=== PATIENT | female | born 1960 | race Caucasian/White ===

== ENCOUNTER 2016-03-31 15:12 | Inpatient (IN) | payer OTHER ==
[2016-03-31 15:52] VITALS: BMI 23.8
--- NOTE | 2016-03-31 17:17 | HP ---
COWS - Scale Resting Pulse: 0= [place] 80 or Below Sweatin=Flushed/Facial Moisture Restless Observation: 3= Extraneous Movement Pupil Size: 2= Moderately Dilated Bone or Joint Aches: 2= Severe Diffuse Aches Runny Nose/ Eye Tearin= Runny Nose/Eyes GI Upset > 30mins: 3= Vomiting/Diarrhea Tremor Observation: 2= Slight Tremor Visible Yawning Observation: 2= >3x During Session Anxiety or Irritability: 2=Irritable/Anxious Goose Flesh Skin: 0=Smooth Skin COWS Score: 20 Admission ROS BHS - HPI Chief Complaint: I AM TIRED OF USING DRUGS Allergies/Adverse Reactions: Allergies Allergy/AdvReac Type Severity Reaction Status Date / Time carbamazepine [From Tegretol] Allergy Severe Difficulty Verified 08/31/15 11:05 Breathing lamotrigine [From Lamictal] Allergy Severe Rash Verified 08/31/15 11:47 phenytoin sodium Allergy Severe Difficulty Verified 08/31/15 11:05 [From Dilantin] Breathing phenytoin sodium extended Allergy Severe Difficulty Verified 08/31/15 11:05 [From Dilantin] Breathing History of Present Illness: THIS 56 YEARS OLD FEMALE WITH HEROIN DEPENDENCE AND COCAINE DEPENDENCE WITHDRAWAL SYMPTOM,LAST DETOX 08/31/15 TO 09/03/15 [facility] NOT COMPLETED SEIZURE LAST 1 WEEK AGO NICOTINE DEPENDENCE WEIGHT LOSS ANXIETY AND DEPRESSION LONGEST PERIOD OF SOBRIETY 19 YEARS SEVERAL ADMISSIONS TO DETOX Exam Limitations: No Limitations - Ebola screening Have you traveled outside of the country in the last 21 days: No Have you had contact with anyone from an Ebola affected area: No Have you been sick,other than usual withdrawal symptoms: No Do you have a fever: No - Review of Systems Constitutional: Diaphoresis, Loss of Appetite, Malaise, Night Sweats, Changes in sleep, Weakness, Unintentional Wgt. Loss EENT: reports: Tearing, Nose Congestion Respiratory: reports: Other (ASTMA) Cardiac: reports: Palpitations GI: reports: Nausea, Poor Appetite, Vomiting, Abdominal cramping : reports: No Symptoms Reported Musculoskeletal: reports: Back Pain, Joint Pain, Muscle Pain, Joint Stiffness Integumentary: reports: Dryness Neuro: reports: Headache, Tremors Endocrine: reports: No Symptoms Reported Hematology: reports: No Symptoms Reported Psychiatric: reports: Anxious, Depressed Other Systems: Reviewed and Negative Patient History - Patient Medical History Hx Anemia: No Hx Asthma: Yes (MDI) Hx Chronic Obstructive Pulmonary Disease (COPD): No Hx Cancer: Yes (LEFT BREAST/ breast removal 05/2011) Hx Cardiac Disorders: No Hx Congestive Heart Failure: No Hx Hypertension: No Hx Hypercholesterolemia: No Hx Pacemaker: No HX Cerebrovascular Accident: No Hx Seizures: Yes (2 YRS AGO) Hx Dementia: No Hx Diabetes: No Hx Gastrointestinal Disorders: No Hx Liver Disease: No Hx Genitourinary Disorders: No Hx Sexually Transmitted Disorders: No Hx Renal Disease (ESRD): No Hx Thyroid Disease: No Hx Human Immunodeficiency Virus (HIV): No (NEGATIVE HX LAST 09/08) Hx Hepatitis C: No Hx Depression: No Hx Suicide Attempt: Yes (CUT WRIST AT 6 YRS AGO; DENIES RECENT IDEATION) Hx Bipolar Disorder: Yes (anxiety ) Hx Schizophrenia: No Other Medical History: NO SUICIDAL,NO HOMICIDAL - Patient Surgical History Past Surgical History: Yes Hx Neurologic Surgery: No Hx Cataract Extraction: No Hx Cardiac Surgery: No Hx Lung Surgery: No Hx Breast Surgery: Yes (MODIFIED LEFT RADICAL MASTECTOMY IN 07/05 [facility]) Hx Breast Biopsy: No Hx Abdominal Surgery: No Hx Appendectomy: No Hx Cholecystectomy: No Hx Genitourinary Surgery: No Hx Section: Yes (x2) Other Surgical History: ectopic at age 24 LEFT Anesthesia Reaction: No - PPD History Previous Implant?: Yes Documented Results: Negative w/proof Implanted On Prior [facility] Admission?: Yes Date: 09/02/15 Results: 0 MM PPD to be Administered?: No - Reproductive History Patient is a Female of Child Bearing Age (11 -55 yrs old): Yes Patient : No - Smoking Cessation Smoking history: Current some day smoker Have you smoked in the past 12 months: Yes Aproximately how many cigarettes per day: 10 Cigars Per Day: 0 Hx Chewing Tobacco Use: No Initiated information on smoking cessation: Yes 'Breaking Loose' booklet given: 03/31/16 - Substance & Tx. History Hx Alcohol Use: Yes Hx Substance Use: Yes Substance Use Type: Alcohol, Cocaine Hx Substance Use Treatment: Yes ([facility] 08/31/15 TO 09/03/15) - Substances Abused Heroin Route: Injection Frequency: Daily Amount used: 10 BAGS Age of first use: 24 Date of Last Use: 03/31/16 Cocaine Route: Smoking Frequency: Daily Amount used: 50$ Age of first use: 56 Date of Last Use: 03/29/16 Family Disease History - Family Disease History Family Disease History: CA: Grandparent (cervical CA), Mother (cervical CA) Admission Physical Exam [facility] - Vital Signs Vital Signs: Vital Signs - 24 hr 03/31/16 15:50 Temperature 96.6 F L Pulse Rate 76 Respiratory 18 Rate Blood Pressure 96/69 - Physical General Appearance: Yes: Moderate Distress, Tremorous, Irritable, Sweating, Anxious HEENTM: Yes: Nasal Congestion Respiratory: Yes: Lungs Clear Neck: Yes: Within Normal Limits Breast: Yes: Surgical Scar (S/P MASTECTOMY LEFT) Cardiology: Yes: Regular Rhythm, Regular Rate, S1, S2 Abdominal: Yes: Within Normal Limits, Normal Bowel Sounds, Non Tender, Flat, Soft Genitourinary: Yes: Within Normal Limits Back: Yes: Muscle Spasm Musculoskeletal: Yes: Back pain, Muscle Pain Extremities: Yes: Tremors Neurological: Yes: Within Normal Limits, bench chemist II-XII NML intact, Fully Oriented, Alert, Motor Strength 5/5 Integumentary: Yes: Dry Lymphatic: Yes: Within Normal Limits - Diagnostic (1) OCD (obsessive compulsive disorder) Current Visit: No Status: Acute (2) Opioid dependence with withdrawal Current Visit: No Status: Acute (3) Asthma Current Visit: No Status: Chronic Qualifiers: Asthma severity: mild intermittent Asthma complication type: uncomplicated Qualified Code(s): J45.20 - Mild intermittent asthma, uncomplicated (4) Nicotine dependence Current Visit: No Status: Chronic Qualifiers: Nicotine product type: cigarettes Substance use status: uncomplicated Qualified Code(s): F17.210 - Nicotine dependence, cigarettes, uncomplicated (5) Seizures Current Visit: No Status: Chronic Qualifiers: Convulsion type: unspecified Qualified Code(s): R56.9 - Unspecified convulsions (6) Weight loss Current Visit: Yes Status: Acute (7) History of mastectomy Current Visit: Yes Status: Acute Qualifiers: Laterality: left Qualified Code(s): Z90.12 - Acquired absence of left breast and nipple (8) Bipolar disorder Current Visit: No Status: Acute Cleared for Admission [facility] - Detox or Rehab S Level of Care: Medically Managed Detox Regimen/Protocol: Methadone S Breath Alcohol Content Breath Alcohol Content: 0 Urine Drug Screen - Results Drug Screen Negative: No Urine Drug Screen Results: PAWAN-Cocaine, OPI-Opiates, OXY-Oxycodone
[2016-03-31] MEDS ORDERED: MAG HYDROX/AL HYDROX/SIMETH 30 ML UNIT-DOSE CUP PO PRN (17:33)
[2016-03-31] MEDS ORDERED: MENTHOL/PHENOL 1 EACH UD MM PRN (17:33)
[2016-03-31] MEDS ORDERED: IBUPROFEN 400 MG TABLET (FP) PO PRN (17:33)
[2016-03-31] MEDS ORDERED: diphenhydrAMINE HCL 50 MG CAPSULE PO PRN (17:33)
[2016-03-31] MEDS ORDERED: LOPERAMIDE HCL 2 MG CAPSULE PO PRN (17:33)
[2016-03-31] MEDS ORDERED: METHADONE HCL 10 MG TABLET (FOR DETOX USE ONLY) PO ONE ×2 (17:33→23:00)
[2016-03-31] MEDS ORDERED: ACETAMINOPHEN 325 MG TABLET (FP) PO PRN (17:33)
[2016-03-31] MEDS ORDERED: NICOTINE POLACRILEX 2 MG GUM BC PRN (17:33)
[2016-03-31] MEDS ORDERED: P-EPHED 60MG/TRIPROLIDI 2.5MG TABLET PO PRN (17:33)
[2016-03-31] MEDS ORDERED: guaiFENesin/D-METHORPHAN HB 10 ML UNIT-DOSE CUPS PO PRN (17:33)
[2016-03-31] MEDS ORDERED: MAGNESIUM HYDROX 2400MG/30ML ORAL SUSPENSION 30 ML CUP PO PRN (17:33)
[2016-03-31] MEDS ORDERED: MAGNESIUM CITRATE 300 ML BOTTLE PO PRN (17:33)
[2016-03-31] MEDS ORDERED: ALBUTEROL SO4 6.7 GM HFA INHALER IH PRN (17:39)
[2016-03-31] MEDS: diazePAM 5 MG TABLET PO PRN (19:35)
[2016-03-31] MEDS: BUDESONIDE/FORMETEROL FUMARATE 80/4.5 mcg INHALER IH SCH (23:03)
[2016-03-31] MEDS: LACOSAMIDE 50 MG TABLET PO SCH (23:04)
[2016-03-31] MEDS: THIAMINE HCL 100 MG TABLET (FP) PO SCH (23:05)
[2016-03-31] MEDS: GABAPENTIN 300 MG CAPSULE (FP) PO SCH (23:14)
[2016-04-01] MEDS ORDERED: TRIMETHOBENZAMIDE HCL 200MG/2ML INJ IM PRN (01:01)
[2016-04-01] MEDS: GABAPENTIN 300 MG CAPSULE (FP) PO SCH ×3 (05:58→22:38)
[2016-04-01] MEDS: diazePAM 5 MG TABLET PO PRN ×3 (05:59→22:41)
[2016-04-01] MEDS ORDERED: METHADONE HCL 10 MG TABLET (FOR DETOX USE ONLY) PO ONE (10:00)
[2016-04-01 10:01] LABS: MCH 23.2 pg (25.7-33.7); MCHC 31.7 g/dl (32.0-36.0); MEAN CELL VOLUME 73.1 fl (80-96); MEAN PLT VOLUME 8.6 fl (7.5-11.1); PLATELET COUNT 246 K/MM3 (134-434); RDW 16.9 % (11.6-15.6); WHITE BLOOD COUNT 5.8 K/mm3 (4.0-10.0)
[2016-04-01 10:30] LABS: ALK PHOS 133 U/L (45-117); ANION GAP 10 (8-16); BILIRUBIN,TOTAL 0.4 mg/dL (0.2-1.0); CO2 31 mmol/L (21-32); CREATININE 0.8 mg/dL (0.55-1.02); GLUCOSE,RANDOM 106 mg/dL (74-106); SGOT/AST 164 U/L (15-37); SGPT/ALT 217 U/L (12-78)
[2016-04-01] MEDS: LACOSAMIDE 50 MG TABLET PO SCH ×2 (10:34→22:38)
[2016-04-01] MEDS: PRENATAL VITAMINS W/ FOLIC ACID TABLET (FP) PO SCH (10:34)
--- NOTE | 2016-04-01 11:06 | PN ---
S COWS - Scale Resting Pulse: 0= [place] 80 or Below Sweatin=Flushed/Facial Moisture Restless Observation: 1= Difficult to Sit Still Pupil Size: 0= Normal to Room Light Bone or Joint Aches: 2= Severe Diffuse Aches Runny Nose/ Eye Tearin= Nasal Congestion GI Upset > 30mins: 2= Nausea/Diarrhea Tremor Observation of Outstretched Hands: 2= Slight Tremor Visible Yawning Observation: 2= >3x During Session Anxiety or Irritability: 2=Irritable/Anxious Goose Flesh Skin: 3=Piloerection COWS Score: 17 BHS Progress Note (SOAP) Subjective: irritable nausea sweats/shakes interrupted sleep body aches agitation Objective: 04/01/16 11:05 Vital Signs Temperature 98.2 F 04/01/16 10:21 Pulse Rate 76 04/01/16 10:21 Respiratory Rate 16 04/01/16 10:21 Blood Pressure 92/50 04/01/16 10:21 O2 Sat by Pulse Oximetry (%) Laboratory Tests 04/01/16 04/01/16 07:00 07:00 WBC 5.8 RBC 5.24 H Hgb 12.1 Hct 38.3 MCV 73.1 L MCHC 31.7 L RDW 16.9 H Plt Count 246 MPV 8.6 Sodium 137 Potassium 3.9 Chloride 96 L Carbon Dioxide 31 Anion Gap 10 BUN 6 L Creatinine 0.8 Creat Clearance w eGFR > 60 Random Glucose 106 Calcium 9.0 Total Bilirubin 0.4 AST 164 H D ALT 217 H D Alkaline Phosphatase 133 H Total Protein 6.0 L D Albumin 3.0 L elevated ast/alt; d/c tylenol repeat labs awake/alert ambulating no acute distress Assessment: 04/01/16 11:05 withdrawal sx Plan: continue detox increase fluids f/u pending labs yusra booker prn
[2016-04-01] MEDS: BUDESONIDE/FORMETEROL FUMARATE 80/4.5 mcg INHALER IH SCH ×2 (11:21→22:38)
--- NOTE | 2016-04-01 11:54 | CONSULT ---
[facility] Psychiatric Consult - Data Date of interview: 04/01/16 Admission source: [facility] Identifying data: This is 56 years old female with psychiatric hospitalization history, history of Bipol.ar Disorder, intoxicated with: Opioids, Cocaine, Xanax, Nicotine, history of Alcohol abuse/dependency Substance Abuse History: - Smoking Cessation. Smoking history: Current some day smoker. Have you smoked in the past 12 months: Yes. Aproximately how many cigarettes per day: 10. Cigars Per Day: 0. Hx Chewing Tobacco Use: No. Initiated information on smoking cessation: Yes. 'Breaking Loose' booklet given : 03/31/16. - Substance & Tx. History. Hx Alcohol Use: Yes. Hx Substance Use : Yes. Substance Use Type: Alcohol, Cocaine. Hx Substance Use Treatment: Yes ( [facility] 08/31/15 TO 09/03/15). - Substances Abused. Heroin. Route: Injection. Frequency: Daily. Amount used: 10 BAGS. Age of first use: 24. Date of Last Use: 03/31/16. Cocaine. Route: Smoking. Frequency: Daily. Amount used: 50$. Age of first use: 56. Date of Last Use: 03/29/16 Medical History: Weight loss history, History od Mastectomy, Asthma, Seizure history Psychiatric History: Patient having history of Bipolar disorder, reports most recent psychaitric admission on about 7 years ago at [facility] for safety , reports to carry bBipolsr disorder, reports taking prior to admssionh: Gabapentin 300mg po tid. Zoloft 50mg pop qhs. Abilify 5mg po qhs Physical/Sexual Abuse/Trauma History: Unclear Additional Comment: Gabapentin 300mg po tid. Zoloft 50mg pop qhs. Abilify 5mg po qhs Mental Status Exam - Mental Status Exam Alert and Oriented to: Person Cognitive Function: Fair Patient Appearance: Unkempt Mood: Nervous, Anxious Affect: Constricted Patient Behavior: Aggressive, Restless, Guarded, Suspicious Speech Pattern: Appropriate Voice Loudness: Mildly Loud Thought Process: Goal Oriented Thought Disorder: Being Controlled Hallucinations: Denies Suicidal Ideation: Denies Homicidal Ideation: Denies Insight/Judgement: Fair Sleep: Difficulty falling asleep Appetite: Weight loss Muscle strength/Tone: Mild Hypertonicity Gait/Station: Normal Additional Comments: Gabapentin 300mg po tid. Zoloft 50mg pop qhs. Abilify 5mg po qhs Psychiatric Findings - Problem List ([place] 1, 2,3) (1) Weight loss Current Visit: Yes Status: Acute (2) Bipolar disorder Current Visit: No Status: Acute (3) OCD (obsessive compulsive disorder) Current Visit: No Status: Acute (4) Opioid dependence with withdrawal Current Visit: No Status: Acute (5) Nicotine dependence Current Visit: No Status: Chronic Qualifiers: Nicotine product type: cigarettes Substance use status: uncomplicated Qualified Code(s): F17.210 - Nicotine dependence, cigarettes, uncomplicated - Initial Treatment Plan Initial Treatment Plan: Gabapentin 300mg po tid. Zoloft 50mg pop qhs. Abilify 5mg po qhs
--- NOTE | 2016-04-01 13:58 | EKG ---
Test Reason : Blood Pressure : / mmHG Vent. Rate : 062 BPM Atrial Rate : 062 BPM P-R Int : 130 ms QRS Dur : 092 ms QT Int : 414 ms P-R-T Axes : 061 064 037 degrees QTc Int : 420 ms NORMAL SINUS RHYTHM POSSIBLE LEFT ATRIAL ENLARGEMENT BORDERLINE ECG NO PREVIOUS ECGS AVAILABLE Confirmed by NESTOR VALLES, RANDY ([id number]) on 04/01/2016 1:58:01 PM Referred By: Confirmed By:RANDY BAEZ MD
[2016-04-01 14:21] LABS: URINE APPEARANCE SLCLOUDY; URINE BILIRUBIN NEGATIVE (NEGATIVE); URINE BLOOD NEGATIVE (NEGATIVE); URINE COLOR YELLOW; URINE GLUCOSE (UA) NEGATIVE (NEGATIVE); URINE KETONE NEGATIVE (NEGATIVE); URINE NITRITE NEGATIVE (NEGATIVE); URINE PROTEIN NEGATIVE (NEGATIVE); URINE UROBILINOGEN NEGATIVE E.U./dl (0.2-1.0)
[2016-04-01 14:22] LABS: URINE LEUK ESTERASE 3+ (NEGATIVE)
[2016-04-01 14:38] LABS: URINE MUCUS MODERATE; URINE RBC 8 /hpf (0-3); URINE WBC 17 /hpf (3-5)
[2016-04-01] MEDS: ONDANSETRON *ODT* 4 MG TABLET SL PRN (15:03)
[2016-04-01] MEDS: SERTRALINE HCL 50 MG TABLET (FP) PO SCH (22:38)
[2016-04-01] MEDS: THIAMINE HCL 100 MG TABLET (FP) PO SCH (22:38)
[2016-04-01] MEDS: ARIPiprazole 5 MG TABLET (FP) PO SCH (22:38)
[2016-04-02] MEDS: GABAPENTIN 300 MG CAPSULE (FP) PO SCH ×3 (06:03→22:42)
[2016-04-02] MEDS: diazePAM 5 MG TABLET PO PRN ×3 (06:04→22:45)
[2016-04-02] MEDS ORDERED: METHADONE HCL 5 MG TABLET (FOR DETOX USE ONLY) PO ONE (10:00)
[2016-04-02 10:20] LABS: BASOPHIL 0.6 % (0-2.0); EOSINOPHIL 4.7 % (0-4.5); MCH 23.5 pg (25.7-33.7); MCHC 32.4 g/dl (32.0-36.0); MEAN CELL VOLUME 72.5 fl (80-96); MEAN PLT VOLUME 8.6 fl (7.5-11.1); NEUTROPHILS 52.3 % (42.8-82.8); PLATELET COUNT 227 K/MM3 (134-434); RDW 16.8 % (11.6-15.6); WHITE BLOOD COUNT 5.7 K/mm3 (4.0-10.0)
[2016-04-02 10:31] LABS: ALBUMIN 2.8 g/dl (3.4-5.0); ALK PHOS 136 U/L (45-117); ANION GAP 8 (8-16); BILIRUBIN,TOTAL 0.4 mg/dL (0.2-1.0); CALCIUM 8.3 mg/dL (8.5-10.1); CO2 29 mmol/L (21-32); CREATININE 0.6 mg/dL (0.55-1.02); GLUCOSE,RANDOM 86 mg/dL (74-106); SGOT/AST 228 U/L (15-37); SGPT/ALT 241 U/L (12-78); TOT PROT 5.8 g/dl (6.4-8.2)
[2016-04-02] MEDS: BUDESONIDE/FORMETEROL FUMARATE 80/4.5 mcg INHALER IH SCH ×2 (10:40→22:42)
[2016-04-02] MEDS: PRENATAL VITAMINS W/ FOLIC ACID TABLET (FP) PO SCH (10:41)
[2016-04-02] MEDS: LACOSAMIDE 50 MG TABLET PO SCH ×2 (10:41→22:42)
[2016-04-02] MEDS: ONDANSETRON *ODT* 4 MG TABLET SL PRN (10:44)
--- NOTE | 2016-04-02 11:03 | PN ---
BHS COWS - Scale Resting Pulse: 1= [place] 81-100 Sweatin=Flushed/Facial Moisture Restless Observation: 1= Difficult to Sit Still Pupil Size: 0= Normal to Room Light Bone or Joint Aches: 2= Severe Diffuse Aches Runny Nose/ Eye Tearin= Nasal Congestion GI Upset > 30mins: 1= Stomach Cramp Tremor Observation of Outstretched Hands: 1= Tremor [place], Not Seen Yawning Observation: 2= >3x During Session Anxiety or Irritability: 2=Irritable/Anxious Goose Flesh Skin: 0=Smooth Skin COWS Score: 13 BHS Progress Note (SOAP) Subjective: body aches sweats shakes interrupted sleep mild nausea Objective: 04/02/16 11:01 Vital Signs Temperature 97.1 F L 04/02/16 10:39 Pulse Rate 81 04/02/16 10:39 Respiratory Rate 20 04/02/16 10:39 Blood Pressure 95/55 04/02/16 10:39 O2 Sat by Pulse Oximetry (%) Laboratory Tests 04/01/16 04/01/16 04/01/16 07:00 07:00 07:00 WBC 5.8 RBC 5.24 H Hgb 12.1 Hct 38.3 MCV 73.1 L MCHC 31.7 L RDW 16.9 H Plt Count 246 MPV 8.6 Neutrophils % Lymphocytes % Monocytes % Eosinophils % Basophils % Sodium 137 Potassium 3.9 Chloride 96 L Carbon Dioxide 31 Anion Gap 10 BUN 6 L Creatinine 0.8 Creat Clearance w eGFR > 60 Random Glucose 106 Calcium 9.0 Total Bilirubin 0.4 AST 164 H D ALT 217 H D Alkaline Phosphatase 133 H Total Protein 6.0 L D Albumin 3.0 L Urine Color Urine Appearance Urine pH Ur Specific [place] Urine Protein Urine Glucose (UA) Urine Ketones Urine Blood Urine Nitrite Urine Bilirubin Urine Urobilinogen Ur Leukocyte Esterase Urine RBC Urine WBC Ur Epithelial Cells Urine Mucus RPR Titer Nonreactive 04/01/16 04/02/16 04/02/16 11:20 07:00 07:00 WBC 5.7 RBC 5.27 H Hgb 12.4 Hct 38.2 MCV 72.5 L MCHC 32.4 RDW 16.8 H Plt Count 227 MPV 8.6 Neutrophils % 52.3 Lymphocytes % 34.0 Monocytes % 8.4 Eosinophils % 4.7 H Basophils % 0.6 Sodium 141 Potassium 4.3 Chloride 104 Carbon Dioxide 29 Anion Gap 8 BUN 5 L Creatinine 0.6 D Creat Clearance w eGFR > 60 Random Glucose 86 Calcium 8.3 L Total Bilirubin 0.4 AST 228 H D ALT 241 H Alkaline Phosphatase 136 H Total Protein 5.8 L Albumin 2.8 L Urine Color Yellow Urine Appearance Slcloudy Urine pH 6.0 Ur Specific [place] 1.010 Urine Protein Negative Urine Glucose (UA) Negative Urine Ketones Negative Urine Blood Negative Urine Nitrite Negative Urine Bilirubin Negative Urine Urobilinogen Negative Ur Leukocyte Esterase 3+ H Urine RBC 8 Urine WBC 17 Ur Epithelial Cells Few Urine Mucus Moderate RPR Titer awake/alert ambulating no acute distress elevated ast/alt; encourage oral hydration repeat labs Assessment: 04/02/16 11:02 withdrawal sx Plan: continue detox increase fluids repeat labs ast/alt
[2016-04-02] MEDS: SERTRALINE HCL 50 MG TABLET (FP) PO SCH (22:42)
[2016-04-02] MEDS: THIAMINE HCL 100 MG TABLET (FP) PO SCH (22:42)
[2016-04-02] MEDS: ARIPiprazole 5 MG TABLET (FP) PO SCH (22:42)
[2016-04-03] MEDS: GABAPENTIN 300 MG CAPSULE (FP) PO SCH ×3 (06:12→22:59)
[2016-04-03] MEDS: diazePAM 5 MG TABLET PO PRN ×2 (06:15→10:28)
[2016-04-03] MEDS ORDERED: METHADONE HCL 5 MG TABLET (FOR DETOX USE ONLY) PO ONE (10:00)
[2016-04-03] MEDS: LACOSAMIDE 50 MG TABLET PO SCH ×2 (10:14→22:59)
[2016-04-03] MEDS: PRENATAL VITAMINS W/ FOLIC ACID TABLET (FP) PO SCH (10:14)
[2016-04-03] MEDS: BUDESONIDE/FORMETEROL FUMARATE 80/4.5 mcg INHALER IH SCH ×2 (10:15→22:58)
[2016-04-03] MEDS: cloNIDine HCL 0.1 MG TABLET PO SCH ×2 (10:15→23:00)
[2016-04-03 10:38] LABS: SGOT/AST 231 U/L (15-37); SGPT/ALT 290 U/L (12-78)
[2016-04-03] MEDS: hydrOXYzine PAMOATE 25 MG CAPSULE (FP) PO PRN (12:55)
[2016-04-03] MEDS: ONDANSETRON *ODT* 4 MG TABLET SL PRN (12:56)
[2016-04-03] MEDS: CYCLOBENZAPRINE HCL 10 MG TABLET (FP) PO PRN ×2 (12:56→23:01)
--- NOTE | 2016-04-03 13:30 | PN ---
S Progress Note (SOAP) Subjective: ALERT,IRRITABLE,ANXIOUS,INTERRUPTED SLEEP,TREMOR,PAIN IN THE BODY AND BACK Objective: 04/03/16 13:29 Vital Signs Temperature 98.6 F 04/03/16 10:19 Pulse Rate 84 04/03/16 10:19 Respiratory Rate 18 04/03/16 10:19 Blood Pressure 103/62 04/03/16 10:19 O2 Sat by Pulse Oximetry (%) Assessment: 04/03/16 13:30 WITHDRAWAL SYMPTOM Plan: CONTINUE DETOX
[2016-04-03] MEDS: NICOTINE 21 MG/24 HOURS TOPICAL PATCH TD SCH (15:56)
[2016-04-03] MEDS: ARIPiprazole 5 MG TABLET (FP) PO SCH (22:59)
[2016-04-03] MEDS: THIAMINE HCL 100 MG TABLET (FP) PO SCH (22:59)
[2016-04-03] MEDS: SERTRALINE HCL 50 MG TABLET (FP) PO SCH (22:59)
[2016-04-04] MEDS: GABAPENTIN 300 MG CAPSULE (FP) PO SCH ×3 (06:26→22:26)
[2016-04-04] MEDS: hydrOXYzine PAMOATE 25 MG CAPSULE (FP) PO PRN (06:27)
[2016-04-04] MEDS ORDERED: METHADONE HCL 10 MG TABLET (FOR DETOX USE ONLY) PO ONE (10:00)
[2016-04-04] MEDS ORDERED: NICOTINE 21 MG/24 HOURS TOPICAL PATCH TD SCH (10:00)
[2016-04-04] MEDS: cloNIDine HCL 0.1 MG TABLET PO SCH (10:57)
[2016-04-04] MEDS: BUDESONIDE/FORMETEROL FUMARATE 80/4.5 mcg INHALER IH SCH ×2 (10:58→22:26)
[2016-04-04] MEDS: PRENATAL VITAMINS W/ FOLIC ACID TABLET (FP) PO SCH (10:58)
[2016-04-04] MEDS: LACOSAMIDE 50 MG TABLET PO SCH ×2 (10:59→22:27)
[2016-04-04] MEDS: NICOTINE 21 MG/24 HOURS TOPICAL PATCH TD SCH (10:59)
--- NOTE | 2016-04-04 14:05 | PN ---
BHS Progress Note (SOAP) Subjective: constipation irritable Objective: 04/04/16 14:04 Vital Signs Temperature 99.0 F 04/04/16 10:26 Pulse Rate 88 04/04/16 10:26 Respiratory Rate 16 04/04/16 10:26 Blood Pressure 89/55 04/04/16 10:26 O2 Sat by Pulse Oximetry (%) awake/alert ambulating no acute distress Assessment: 04/04/16 14:04 withdrawal sx Plan: continue detox increase fluids immodium prn d/c in am
[2016-04-04] MEDS: THIAMINE HCL 100 MG TABLET (FP) PO SCH (22:26)
[2016-04-04] MEDS: ARIPiprazole 5 MG TABLET (FP) PO SCH (22:27)
[2016-04-04] MEDS: SERTRALINE HCL 50 MG TABLET (FP) PO SCH (22:27)
[2016-04-05] MEDS: GABAPENTIN 300 MG CAPSULE (FP) PO SCH (05:50)
[2016-04-05] MEDS ORDERED: METHADONE HCL 5 MG TABLET (FOR DETOX USE ONLY) PO ONE (06:00)
[2016-04-05 06:42] VITALS: BP 98/61; PULSE 78; TEMP 98.5
[2016-04-05] MEDS: LACOSAMIDE 50 MG TABLET PO SCH (09:19)
--- NOTE | 2016-04-05 09:20 | DS ---
[facility] Detox Discharge Summary Admission Date: 03/31/16 Discharge Date: 04/05/16 - History Present History: Opioid Dependence - Physical Exam Results Vital Signs: Vital Signs Temperature 98.5 F 04/05/16 06:41 Pulse Rate 78 04/05/16 06:41 Respiratory Rate 16 04/05/16 06:41 Blood Pressure 98/61 04/05/16 06:41 O2 Sat by Pulse Oximetry (%) - Treatment Hospital Course: Detox Protocol Followed, Detoxed Safely, Responded well, Discharged Condition Good, Rehab Referral Accepted - Medication Discharge Medications: Ambulatory Orders Albuterol Sulfate Inhaler - [Ventolin Hfa Inhaler -] 2 inh PO Q4H 03/31/16 Budesonide/Formeterol Fumarate [SYMBICORT 80/4.5mcg -] 2 puff PO BID 03/31/16 Gabapentin [Neurontin -] 300 mg PO Q8H 03/31/16 Lacosamide [Vimpat -] 100 mg PO DAILY 03/31/16 Montelukast Na [Singulair -] 10 mg PO HS 03/31/16 Aripiprazole [Abilify -] 5 mg PO HS #30 tablet 04/01/16 Sertraline HCl [Zoloft -] 50 mg PO HS #30 tablet 04/01/16 - Diagnosis (1) History of mastectomy Current Visit: Yes Status: Acute Qualifiers: Laterality: left Qualified Code(s): Z90.12 - Acquired absence of left breast and nipple (2) Weight loss Current Visit: Yes Status: Acute (3) Bipolar disorder Current Visit: No Status: Chronic (4) OCD (obsessive compulsive disorder) Current Visit: No Status: Acute (5) Opioid dependence with withdrawal Current Visit: Yes Status: Chronic (6) Asthma Current Visit: Yes Status: Chronic Qualifiers: Asthma severity: mild intermittent Asthma complication type: uncomplicated Qualified Code(s): J45.20 - Mild intermittent asthma, uncomplicated (7) Nicotine dependence Current Visit: Yes Status: Chronic Qualifiers: Nicotine product type: cigarettes Substance use status: uncomplicated Qualified Code(s): F17.210 - Nicotine dependence, cigarettes, uncomplicated (8) Seizures Current Visit: No Status: Chronic Qualifiers: Convulsion type: unspecified Qualified Code(s): R56.9 - Unspecified convulsions - AMA Did Patient Leave Against Medical Advice: No
[2016-04-05] MEDS: BUDESONIDE/FORMETEROL FUMARATE 80/4.5 mcg INHALER IH SCH (09:22)
== END 2016-04-05 09:26 | disposition home or self-care (01) | DRG 773 ==
LOC: YASAS 15:12 → Y6N 17:19
PROVIDERS: ADMIT Internal Medicine Addiction Medicine; ATTEND Internal Medicine Addiction Medicine
PROC: HZ2ZZZZ Detoxification Services for Substance Abuse Treatment (ICD-10-PCS; principal; 2016-04-05)
DX: F11.23 Opioid dependence with withdrawal (principal); F17.210 Nicotine dependence, cigarettes, uncomplicated; F31.9 Bipolar disorder, unspecified; F42.9 Obsessive-compulsive disorder, unspecified; R56.9 Unspecified convulsions; J45.20 Mild intermittent asthma, uncomplicated; R63.4 Abnormal weight loss; Z68.23 Body mass index [BMI] 23.0-23.9, adult; Z85.3 Personal history of malignant neoplasm of breast; Z90.12 Acquired absence of left breast and nipple
CPT/HCPCS: 36415; 80053; 81003; 81015; 84450; 84460; 85025; 85027; 85610; 86593; 93005; 93010

== ENCOUNTER 2018-01-02 22:13 | Inpatient (IN) | payer OTHER ==
[2018-01-02 23:40] VITALS: BMI 22.6
--- NOTE | 2018-01-03 00:23 | HP ---
COWS - Scale Resting Pulse: 0= [place] 80 or Below Sweatin=Flushed/Facial Moisture Restless Observation: 0= Sits Still Pupil Size: 0= Normal to Room Light Bone or Joint Aches: 2= Severe Diffuse Aches Runny Nose/ Eye Tearin= Runny Nose/Eyes GI Upset > 30mins: 2= Nausea/Diarrhea (diarrhea x 2) Tremor Observation: 2= Slight Tremor Visible Yawning Observation: 1= 1-2x During Session Anxiety or Irritability: 2=Irritable/Anxious Goose Flesh Skin: 3=Piloerection COWS Score: 16 CIWA Score - Admission Criteria [facility]ASAS Guidelines: Admission for Medically Managed Detox: Requires at least one of the followin. CIWA greater than 12 2. Seizures within the past 24 hours 3. Delirium tremens within the past 24 hours 4. Hallucinations within the past 24 hours 5. Acute intervention needed for co occurring medical disorder 6. Acute intervention needed for co occurring psychiatric disorder 7. Severe withdrawal that cannot be handled at a lower level of care (continued vomiting, continued diarrhea, abnormal vital signs) requiring intravenous medication and/or fluids 8. Admission ROS [facility] Chief Complaint: Heroin withdrawal symptoms Allergies/Adverse Reactions: Allergies Allergy/AdvReac Type Severity Reaction Status Date / Time carbamazepine [From Tegretol] Allergy Severe Difficulty Verified 01/02/18 23:57 Breathing lamotrigine [From Lamictal] Allergy Severe Rash Verified 01/02/18 23:57 phenytoin sodium Allergy Severe Difficulty Verified 01/02/18 23:57 [From Dilantin] Breathing phenytoin sodium extended Allergy Severe Difficulty Verified 01/02/18 23:57 [From Dilantin] Breathing History of Present Illness: 57 years old female with 33 years of heroin dependence is seeking admission to detox. Patient reports that last detox was in 03/31/2016- 04/05/2016 at [facility]. She reports a year of sobriety. She has medical history of seizure, asthma, Hep. c, left breast cancer, anxiety and depression. She denies suicide attempt or ideation at this time. Patient's blood pressure is B/P 85/45. Patient reports that her blood pressure is always low. Exam Limitations: No Limitations - Ebola screening Have you traveled outside of the country in the last 21 days: No (N) Have you had contact with anyone from an Ebola affected area: No Have you been sick,other than usual withdrawal symptoms: No Do you have a fever: No - Review of Systems Constitutional: Chills, Malaise EENT: reports: No Symptoms Reported Respiratory: reports: No Symptoms reported Cardiac: reports: No Symptoms Reported GI: reports: Diarrhea (x 2), Nausea, Poor Appetite, Poor Fluid Intake, Abdominal cramping : reports: No Symptoms Reported Musculoskeletal: reports: Back Pain, Muscle Pain Neuro: reports: Headache, Tremors Endocrine: reports: No Symptoms Reported Hematology: reports: No Symptoms Reported Psychiatric: reports: Agitated, Anxious, Depressed Other Systems: Reviewed and Negative Patient History - Patient Medical History Hx Anemia: No Hx Asthma: Yes (Alb uterol) Hx Chronic Obstructive Pulmonary Disease (COPD): No Hx Cancer: Yes (LEFT BREAST/ breast removal 05/2011) Hx Cardiac Disorders: No Hx Congestive Heart Failure: No Hx Hypertension: No Hx Hypercholesterolemia: No Hx Pacemaker: No HX Cerebrovascular Accident: No Hx Seizures: Yes (Not on medication) Hx Dementia: No Hx Diabetes: No Hx Gastrointestinal Disorders: No Hx Liver Disease: No Hx Genitourinary Disorders: No Hx Sexually Transmitted Disorders: No Hx Renal Disease (ESRD): No Hx Thyroid Disease: No Hx Human Immunodeficiency Virus (HIV): No (NEGATIVE HX LAST 09/08) Hx Hepatitis C: Yes (Not on medication) Hx Depression: Yes (Not on medication) Hx Suicide Attempt: Yes (Attempt at age 15, denies suicidal ideation at this time) Hx Bipolar Disorder: Yes ( ) Hx Schizophrenia: No Other Medical History: Anxiety- N ot on medication - Patient Surgical History Past Surgical History: Yes Hx Neurologic Surgery: No Hx Cataract Extraction: No Hx Cardiac Surgery: No Hx Lung Surgery: No Hx Breast Surgery: Yes (MODIFIED LEFT RADICAL MASTECTOMY IN 07/05 [facility]) Hx Breast Biopsy: No Hx Abdominal Surgery: No Hx Appendectomy: No Hx Cholecystectomy: No Hx Genitourinary Surgery: No Hx Section: Yes (1979, 1984) Hx Orthopedic Surgery: No Other Surgical History: ectopic at age 24 LEFT Anesthesia Reaction: No - PPD History Previous Implant?: Yes Documented Results: Negative w/o proof Date: 09/02/15 Results: 0 MM PPD to be Administered?: Yes - Reproductive History Patient is a Female of Child Bearing Age (11 -55 yrs old): Yes LMP comment: Menopausal Patient : No - Smoking Cessation Smoking history: Current some day smoker Have you smoked in the past 12 months: Yes Aproximately how many cigarettes per day: 10 Cigars Per Day: 0 Hx Chewing Tobacco Use: No Initiated information on smoking cessation: Yes 'Breaking Loose' booklet given: 01/03/18 - Substance & Tx. History Hx Alcohol Use: No Hx Substance Use: Yes Substance Use Type: Opiates Hx Substance Use Treatment: Yes ([facility]) - Substances Abused Heroin Route: Injection Frequency: Daily Amount used: 5-10 bags Age of first use: 24 Date of Last Use: 01/02/18 Family Disease History - Family Disease History Family Disease History: CA: Grandparent (cervical CA), Mother (cervical CA) Admission Physical Exam S - Vital Signs Vital Signs: Vital Signs - 24 hr 01/02/18 23:34 Temperature 98.4 F Pulse Rate 66 Respiratory 18 Rate Blood Pressure 85/45 L - Physical General Appearance: Yes: Moderate Distress, Tremorous, Irritable, Anxious HEENTM: Yes: EOMI, Normal ENT Inspection, Normal Voice, DREW Respiratory: Yes: Lungs Clear, Normal Breath Sounds, No Respiratory Distress Neck: Yes: Supple Breast: Yes: Breast Exam Deferred, Mastectomy (left breast) Cardiology: Yes: Regular Rhythm, Regular Rate Abdominal: Yes: Normal Bowel Sounds, Soft Genitourinary: Yes: Within Normal Limits Back: Yes: Normal Inspection Musculoskeletal: Yes: Back pain, Muscle Pain Extremities: Yes: Tremors Neurological: Yes: Alert, Normal Mood/Affect Integumentary: Yes: Warm Lymphatic: Yes: Within Normal Limits - Diagnostic (1) Hep C w/o coma, chronic Current Visit: Yes Status: Chronic (2) Anxiety Current Visit: Yes Status: Chronic (3) Depression Current Visit: Yes Status: Chronic Qualifiers: Depression Type: unspecified Qualified Code(s): F32.9 - Major depressive disorder, single episode, unspecified (4) History of mastectomy Current Visit: No Status: Chronic Qualifiers: Laterality: left Qualified Code(s): Z90.12 - Acquired absence of left breast and nipple (5) Asthma Current Visit: Yes Status: Chronic Qualifiers: Asthma severity: mild intermittent Asthma complication type: uncomplicated (6) Nicotine dependence Current Visit: Yes Status: Chronic Qualifiers: Nicotine product type: cigarettes Substance use status: uncomplicated Qualified Code(s): F17.210 - Nicotine dependence, cigarettes, uncomplicated (7) Opioid dependence with withdrawal Current Visit: Yes Status: Acute (8) Seizures Current Visit: Yes Status: Chronic Qualifiers: Convulsion type: unspecified Qualified Code(s): R56.9 - Unspecified convulsions Cleared for Admission [facility] - Detox or Rehab [facility] Level of Care: Medically Managed Detox Regimen/Protocol: Methadone [facility] Breath Alcohol Content Breath Alcohol Content: 0 Urine Pregancy Test - Result Urine Test Results: Negative- NO Line Present Urine Drug Screen - Results Drug Screen Negative: No Urine Drug Screen Results: PAWAN-Cocaine, OPI-Opiates, BAR-Barbiturates, FEN- Fentanyl
[2018-01-03] MEDS ORDERED: guaiFENesin/D-METHORPHAN HB 10 ML UNIT-DOSE CUPS PO PRN (00:42)
[2018-01-03] MEDS ORDERED: IBUPROFEN 400 MG TABLET (FP) PO PRN (00:42)
[2018-01-03] MEDS ORDERED: P-EPHED 60MG/TRIPROLIDI 2.5MG TABLET PO PRN (00:42)
[2018-01-03] MEDS ORDERED: MENTHOL/PHENOL 1 EACH UD MM PRN (00:42)
[2018-01-03] MEDS ORDERED: NICOTINE POLACRILEX 2 MG GUM BC PRN (00:42)
[2018-01-03] MEDS ORDERED: MAGNESIUM HYDROX 2400MG/30ML ORAL SUSPENSION 30 ML CUP PO PRN (00:42)
[2018-01-03] MEDS ORDERED: ACETAMINOPHEN 325 MG TABLET (FP) PO PRN (00:42)
[2018-01-03] MEDS ORDERED: MAGNESIUM CITRATE 300 ML BOTTLE PO PRN (00:42)
[2018-01-03] MEDS ORDERED: METHADONE HCL 10 MG TABLET (FOR DETOX USE ONLY) PO ONE ×3 (00:42→23:00)
[2018-01-03] MEDS ORDERED: MAG HYDROX/AL HYDROX/SIMETH 30 ML UNIT-DOSE CUP PO PRN (00:42)
[2018-01-03] MEDS ORDERED: LOPERAMIDE HCL 2 MG CAPSULE PO PRN (00:42)
[2018-01-03] MEDS: diazePAM 5 MG TABLET PO PRN ×4 (01:58→21:22)
[2018-01-03] MEDS: GABAPENTIN 300 MG CAPSULE (FP) PO SCH ×3 (05:41→22:28)
[2018-01-03] MEDS: PRENATAL VITAMINS W/ FOLIC ACID TABLET (FP) PO SCH (10:44)
[2018-01-03] MEDS: NICOTINE 14 MG/24 HOURS TOPICAL PATCH TD SCH (10:46)
--- NOTE | 2018-01-03 15:11 | CONSULT ---
[facility] Psychiatric Consult - Data Date of interview: 01/03/18 Admission source: [facility] Identifying data: Readmission to [facility] for this 57 y/o female seeking detoxification treatment, on , for heroin, alcohol and cocaine dependence. Patient is single, a mother of three, domiciled, unemployed and supported on SSI benefits. Substance Abuse History: Discussed in this session. Patient confirms an enduring history of abuse of heroin, cocaine and alcohol. Refer to current [facility] report for additional details : Smoking history: Current some day smoker. Have you smoked in the past 12 months: Yes. Aproximately how many cigarettes per day : 10. Cigars Per Day: 0. Hx Chewing Tobacco Use: No. Initiated information on smoking cessation: Yes. 'Breaking Loose' booklet given: 01/03/18. - Substance & Tx. History. Hx Alcohol Use: No. Hx Substance Use: Yes. Substance Use Type: Opiates. Hx Substance Use Treatment: Yes ([facility]). - Substances Abused. Heroin. Route: Injection. Frequency: Daily. Amount used: 5-10 bags. Age of first use: 24. Date of Last Use: 01/02/18 Medical History: Medical co-morbidities : bronchial asthma, hepatitis C, seizure disorder, two sections, antecedent of ectopic (age 24 ), cancer of left breast (modified radical mastectomy). Psychiatric History: Patient is a difficult historian to follow (due to moderate sedation : medication-induced). She does report a history of multiple psychiatric hospitalizations ([facility] + [facility]). Diagnosed with Bipolar Disorder + OCD (as per records). Ms Sagastume indicates that she is currently on zoloft and abilify. No information about doses. NON- adherent to medications. " I have not taken them for a while." States that she " used to go to a program " in [place]. Name not recalled. Patient denies history of suicide attempts. Physical/Sexual Abuse/Trauma History: Not discussed. Patient is somnolent at intervals. Additional Comment: Urine Drug Screen Results: PAWAN-Cocaine, OPI-Opiates, BAR- Barbiturates, FEN-Fentanyl. Noted. Mental Status Exam - Mental Status Exam Alert and Oriented to: Time, Place, Person Cognitive Function: Grossly Intact Patient Appearance: Disheveled Mood: Nervous, Withdrawn Affect: Mood Congruent Patient Behavior: Sedated (mildly sedated , easily arousable, answers questions when prompted), Fatigued Speech Pattern: Delayed, Slurred Voice Loudness: Moderately Soft/Quiet Thought Process: Goal Oriented Thought Disorder: Not Present Hallucinations: Denies Suicidal Ideation: Denies Homicidal Ideation: Denies Insight/Judgement: Poor Sleep: Well Appetite: Fair Gait/Station: Other (not observed ; patient remains in bed for entire interview) Psychiatric Findings - Problem List ([place] 1, 2,3) (1) Opioid dependence with withdrawal Current Visit: Yes Status: Acute (2) Nicotine dependence Current Visit: Yes Status: Chronic Qualifiers: Nicotine product type: cigarettes Substance use status: uncomplicated Qualified Code(s): F17.210 - Nicotine dependence, cigarettes, uncomplicated (3) Cocaine dependence Current Visit: Yes Status: Acute (4) Substance induced mood disorder Current Visit: Yes Status: Acute (5) Bipolar disorder Current Visit: No Status: Chronic Comment: As per records. No evidence of symptoms at time of this examination. - Initial Treatment Plan Initial Treatment Plan: Psychoeducation deferred until patient fully awake + conversant. Sleep hygiene. Psychotherapy (group + supportive) to be initiated at a later time (when sedation is lifted). Suggest revision of detoxification protocol for dose adjustment. Falls precautions. Observation.
--- NOTE | 2018-01-03 17:57 | PN ---
S Progress Note Note: PATIENT ADMITTED TO DETOX FOR OPIOD WITHDRAWAL SYMPTOMS. Vital Signs - 24 hr 01/02/18 01/03/18 01/03/18 23:34 08:22 10:02 Temperature 98.4 F 99 F 97.9 F Pulse Rate 66 66 78 Respiratory 18 18 16 Rate Blood Pressure 85/45 L 103/52 L 111/69 01/03/18 14:02 Temperature 97.5 F L Pulse Rate 81 Respiratory 16 Rate Blood Pressure 100/61 Laboratory Tests 01/03/18 07:30 HIV 1&2 Antibody Screen Negative HIV P24 Antigen Negative PATIENT ALERT AND ORIENTED X 3 SKIN WARM AND DRY CAR S1S2 RESP CTA BL EXT FULL ROM AMB AD KASSIE ANXIOUS A/P: WITHDRAWAL SYMPTOMS CONTINUE DETOX ENCOURAGE ORAL FLUIDS CONTINUE TO MONITOR CLINICALLY
[2018-01-03] MEDS ORDERED: cloNIDine HCL 0.1 MG TABLET PO SCH (22:00)
[2018-01-03] MEDS: THIAMINE HCL 100 MG TABLET (FP) PO SCH (22:28)
[2018-01-03] MEDS: MELATONIN 5 MG TABLETS PO PRN (22:29)
[2018-01-04 01:52] LABS: URINE APPEARANCE CLEAR; URINE BILIRUBIN NEGATIVE (<2.0 mg/dL); URINE COLOR STRAW; URINE GLUCOSE (UA) NEGATIVE (NEGATIVE); URINE KETONE NEGATIVE (NEGATIVE); URINE LEUK ESTERASE NEGATIVE (NEGATIVE); URINE NITRITE NEGATIVE (NEGATIVE); URINE PROTEIN NEGATIVE (NEGATIVE)
[2018-01-04] MEDS: GABAPENTIN 300 MG CAPSULE (FP) PO SCH ×3 (07:17→22:34)
[2018-01-04] MEDS ORDERED: METHADONE HCL 10 MG TABLET (FOR DETOX USE ONLY) PO ONE (10:00)
[2018-01-04] MEDS: NICOTINE 14 MG/24 HOURS TOPICAL PATCH TD SCH (10:34)
[2018-01-04] MEDS: PRENATAL VITAMINS W/ FOLIC ACID TABLET (FP) PO SCH (10:34)
[2018-01-04] MEDS: diazePAM 5 MG TABLET PO PRN ×3 (10:49→21:04)
[2018-01-04 10:50] LABS: ALBUMIN 2.8 g/dl (3.4-5.0); ALK PHOS 153 U/L (45-117); ANION GAP 6 MMOL/L (8-16); BILIRUBIN,TOTAL 0.3 mg/dL (0.2-1); BLOOD UREA NITROGEN 8 mg/dL (7-18); CALCIUM 8.5 mg/dL (8.5-10.1); CHLORIDE 104 mmol/L (98-107); CO2 29 mmol/L (21-32); CREATININE 0.7 mg/dL (0.55-1.3); GLUCOSE,RANDOM 87 mg/dL (74-106); POTASSIUM 4.2 mmol/L (3.5-5.1); SGOT/AST 45 U/L (15-37); SGPT/ALT 56 U/L (13-61); SODIUM 139 mmol/L (136-145)
[2018-01-04 11:06] LABS: HEMATOCRIT 39.1 % (32.4-45.2); HEMOGLOBIN 12.8 GM/dL (10.7-15.3); MCH 25.3 pg (25.7-33.7); MCHC 32.7 g/dl (32.0-36.0); MEAN CELL VOLUME 77.6 fl (80-96); MEAN PLT VOLUME 8.3 fl (7.5-11.1); PLATELET COUNT 283 K/MM3 (134-434); RBC 5.04 M/mm3 (3.60-5.2); RDW 14.7 % (11.6-15.6)
--- NOTE | 2018-01-04 15:11 | PN ---
[facility] COWS - Scale Resting Pulse: 1= [place] 81-100 Sweatin= Chills/Flushing Restless Observation: 1= Difficult to Sit Still Pupil Size: 1= Pupils >than Normal Bone or Joint Aches: 2= Severe Diffuse Aches Runny Nose/ Eye Tearin= Nasal Congestion GI Upset > 30mins: 2= Nausea/Diarrhea Tremor Observation of Outstretched Hands: 1= Tremor [place], Not Seen Yawning Observation: 1= 1-2x During Session Anxiety or Irritability: 1=Feels Anxious/Irritable Goose Flesh Skin: 0=Smooth Skin COWS Score: 12 S Progress Note (SOAP) Subjective: body aches joints pain gi distress trouble sleep at night Objective: 01/04/18 15:27 Vital Signs Temperature 97.5 F L 01/04/18 14:23 Pulse Rate 66 01/04/18 14:23 Respiratory Rate 18 01/04/18 14:23 Blood Pressure 97/59 L 01/04/18 14:23 O2 Sat by Pulse Oximetry (%) Laboratory Last Values WBC 8.0 K/mm3 (4.0-10.0) 01/04/18 05:35 RBC 5.04 M/mm3 (3.60-5.2) 01/04/18 05:35 Hgb 12.8 GM/dL (10.7-15.3) 01/04/18 05:35 Hct 39.1 % (32.4-45.2) 01/04/18 05:35 MCV 77.6 fl (80-96) L 01/04/18 05:35 MCH 25.3 pg (25.7-33.7) L 01/04/18 05:35 MCHC 32.7 g/dl (32.0-36.0) 01/04/18 05:35 RDW 14.7 % (11.6-15.6) D 01/04/18 05:35 Plt Count 283 K/MM3 (134-434) D 01/04/18 05:35 MPV 8.3 fl (7.5-11.1) 01/04/18 05:35 Sodium 139 mmol/L (136-145) 01/04/18 05:35 Potassium 4.2 mmol/L (3.5-5.1) 01/04/18 05:35 Chloride 104 mmol/L (98-107) 01/04/18 05:35 Carbon Dioxide 29 mmol/L (21-32) 01/04/18 05:35 Anion Gap 6 MMOL/L (8-16) L 01/04/18 05:35 BUN 8 mg/dL (7-18) 01/04/18 05:35 Creatinine 0.7 mg/dL (0.55-1.3) 01/04/18 05:35 Creat Clearance w eGFR > 60 (>60) 01/04/18 05:35 Random Glucose 87 mg/dL (74-106) 01/04/18 05:35 Calcium 8.5 mg/dL (8.5-10.1) 01/04/18 05:35 Total Bilirubin 0.3 mg/dL (0.2-1) 01/04/18 05:35 AST 45 U/L (15-37) H 01/04/18 05:35 ALT 56 U/L (13-61) 01/04/18 05:35 Alkaline Phosphatase 153 U/L (45-117) H 01/04/18 05:35 Total Protein 7.0 g/dl (6.4-8.2) 01/04/18 05:35 Albumin 2.8 g/dl (3.4-5.0) L 01/04/18 05:35 Urine Color Straw 01/03/18 23:31 Urine Appearance Clear 01/03/18 23:31 Urine pH 8.0 (5.0-8.0) D 01/03/18 23:31 Ur Specific [place] 1.005 (1.010-1.035) L 01/03/18 23:31 Urine Protein Negative (NEGATIVE) 01/03/18 23:31 Urine Glucose (UA) Negative (NEGATIVE) 01/03/18 23:31 Urine Ketones Negative (NEGATIVE) 01/03/18 23:31 Urine Blood Negative (NEGATIVE) 01/03/18 23:31 Urine Nitrite Negative (NEGATIVE) 01/03/18 23:31 Urine Bilirubin Negative (<2.0 mg/dL) 01/03/18 23:31 Urine Urobilinogen 2.0 mg/dL (0.2-1.0) H 01/03/18 23:31 Ur Leukocyte Esterase Negative (NEGATIVE) 01/03/18 23:31 RPR Titer Nonreactive (NONREACTIVE) 01/04/18 05:35 HIV 1&2 Antibody Screen Negative 01/03/18 07:30 HIV P24 Antigen Negative 01/03/18 07:30 lab noted Assessment: 01/04/18 15:27 withdrawal sx Plan: continue detox
--- NOTE | 2018-01-04 19:32 | EKG ---
Test Reason : Blood Pressure : / mmHG Vent. Rate : 067 BPM Atrial Rate : 067 BPM P-R Int : 126 ms QRS Dur : 084 ms QT Int : 404 ms P-R-T Axes : 073 078 066 degrees QTc Int : 426 ms NORMAL SINUS RHYTHM NORMAL ECG WHEN COMPARED WITH ECG OF 31-MAR-2016 17:57, T WAVE VARIATION Confirmed by BRUNILDA MARIE MD ([id number]) on 01/04/2018 7:32:03 PM Referred By: Confirmed By:BRUNILDA MARIE MD
[2018-01-04] MEDS: THIAMINE HCL 100 MG TABLET (FP) PO SCH (22:34)
[2018-01-04] MEDS: MONTELUKAST NA 10 MG TABLET PO SCH (22:34)
[2018-01-04] MEDS: MELATONIN 5 MG TABLETS PO PRN (22:36)
[2018-01-05] MEDS: diazePAM 5 MG TABLET PO PRN ×3 (05:46→17:39)
[2018-01-05] MEDS: GABAPENTIN 300 MG CAPSULE (FP) PO SCH ×3 (06:31→21:50)
[2018-01-05] MEDS ORDERED: METHADONE HCL 5 MG TABLET (FOR DETOX USE ONLY) PO ONE (10:00)
--- NOTE | 2018-01-05 10:47 | PN ---
[facility] COWS - Scale Resting Pulse: 1= [place] 81-100 Sweatin= Chills/Flushing Restless Observation: 1= Difficult to Sit Still Pupil Size: 0= Normal to Room Light Bone or Joint Aches: 2= Severe Diffuse Aches Runny Nose/ Eye Tearin= Nasal Congestion GI Upset > 30mins: 0= None Tremor Observation of Outstretched Hands: 2= Slight Tremor Visible Yawning Observation: 2= >3x During Session Anxiety or Irritability: 2=Irritable/Anxious Goose Flesh Skin: 3=Piloerection COWS Score: 15 [facility] Progress Note (SOAP) Subjective: shakes sweats chills body aches interrupted sleep Objective: 01/05/18 10:44 Vital Signs Temperature 97.9 F 01/05/18 09:51 Pulse Rate 85 01/05/18 09:51 Respiratory Rate 16 01/05/18 09:51 Blood Pressure 106/65 01/05/18 09:51 O2 Sat by Pulse Oximetry (%) Laboratory Tests 01/03/18 01/03/18 01/04/18 07:30 23:31 05:35 WBC 8.0 RBC 5.04 Hgb 12.8 Hct 39.1 MCV 77.6 L MCH 25.3 L MCHC 32.7 RDW 14.7 D Plt Count 283 D MPV 8.3 Sodium Potassium Chloride Carbon Dioxide Anion Gap BUN Creatinine Creat Clearance w eGFR Random Glucose Calcium Total Bilirubin AST ALT Alkaline Phosphatase Total Protein Albumin Urine Color Straw Urine Appearance Clear Urine pH 8.0 D Ur Specific [place] 1.005 L Urine Protein Negative Urine Glucose (UA) Negative Urine Ketones Negative Urine Blood Negative Urine Nitrite Negative Urine Bilirubin Negative Urine Urobilinogen 2.0 H Ur Leukocyte Esterase Negative RPR Titer HIV 1&2 Antibody Screen Negative HIV P24 Antigen Negative 01/04/18 01/04/18 05:35 05:35 WBC RBC Hgb Hct MCV MCH MCHC RDW Plt Count MPV Sodium 139 Potassium 4.2 Chloride 104 Carbon Dioxide 29 Anion Gap 6 L BUN 8 Creatinine 0.7 Creat Clearance w eGFR > 60 Random Glucose 87 Calcium 8.5 Total Bilirubin 0.3 AST 45 H ALT 56 Alkaline Phosphatase 153 H Total Protein 7.0 Albumin 2.8 L Urine Color Urine Appearance Urine pH Ur Specific [place] Urine Protein Urine Glucose (UA) Urine Ketones Urine Blood Urine Nitrite Urine Bilirubin Urine Urobilinogen Ur Leukocyte Esterase RPR Titer Nonreactive HIV 1&2 Antibody Screen HIV P24 Antigen aaox3 ambulating no acute distress Assessment: 01/05/18 10:46 withdrawal sx Plan: continue detox increase fluids
[2018-01-05] MEDS: PRENATAL VITAMINS W/ FOLIC ACID TABLET (FP) PO SCH (11:24)
[2018-01-05] MEDS: NICOTINE 14 MG/24 HOURS TOPICAL PATCH TD SCH (11:26)
--- NOTE | 2018-01-05 18:31 | PN ---
[facility] Progress Note (SOAP) Subjective: C/o constipation. States no BM x 2 days. States MOM and Miralax did not help. Denies nausea or vomiting. Objective: A&Ox3. Abdomen slightly distended, soft, non-tender, BS(+). Vital Signs 01/05/18 01/05/18 18:31 22:20 Temperature 98.4 F 98.2 F Pulse Rate 85 89 Respiratory 19 18 Rate Blood Pressure 107/58 L 90/53 L Lab Results WBC 8.0 K/mm3 (4.0-10.0) 01/04/18 05:35 RBC 5.04 M/mm3 (3.60-5.2) 01/04/18 05:35 Hgb 12.8 GM/dL (10.7-15.3) 01/04/18 05:35 Hct 39.1 % (32.4-45.2) 01/04/18 05:35 MCV 77.6 fl (80-96) L 01/04/18 05:35 MCHC 32.7 g/dl (32.0-36.0) 01/04/18 05:35 RDW 14.7 % (11.6-15.6) D 01/04/18 05:35 Plt Count 283 K/MM3 (134-434) D 01/04/18 05:35 Sodium 139 mmol/L (136-145) 01/04/18 05:35 Potassium 4.2 mmol/L (3.5-5.1) 01/04/18 05:35 Chloride 104 mmol/L (98-107) 01/04/18 05:35 Carbon Dioxide 29 mmol/L (21-32) 01/04/18 05:35 Anion Gap 6 MMOL/L (8-16) L 01/04/18 05:35 BUN 8 mg/dL (7-18) 01/04/18 05:35 Creatinine 0.7 mg/dL (0.55-1.3) 01/04/18 05:35 Random Glucose 87 mg/dL (74-106) 01/04/18 05:35 Calcium 8.5 mg/dL (8.5-10.1) 01/04/18 05:35 Labs reviewed. Assessment: Constipation. Withdrawal symptoms. Plan: Continue detox. Give mag citrate now. Fleet enema in am and then daily, prn. Encourage increased water. Colace 100 mg PO TID starting in am.
[2018-01-05] MEDS ORDERED: POLYETHYLENE GLYCOL 3350 119 GM BTL PO PRN (18:32)
[2018-01-05] MEDS: THIAMINE HCL 100 MG TABLET (FP) PO SCH (21:50)
[2018-01-05] MEDS: MONTELUKAST NA 10 MG TABLET PO SCH (21:50)
[2018-01-05] MEDS: MELATONIN 5 MG TABLETS PO PRN (23:28)
[2018-01-06] MEDS ORDERED: DOCUSATE SODIUM 100 MG CAPSULE (FP) PO SCH (06:00)
[2018-01-06] MEDS: GABAPENTIN 300 MG CAPSULE (FP) PO SCH (06:07)
[2018-01-06] MEDS ORDERED: diazePAM 5 MG TABLET PO ONE (06:43)
[2018-01-06 09:45] VITALS: BP 111/57; PULSE 90; TEMP 98.2
[2018-01-06] MEDS ORDERED: SODIUM PHOSPHATE/NA BIPHOS 133 ML ENEMA PR PRN (10:00)
[2018-01-06] MEDS ORDERED: METHADONE HCL 5 MG TABLET (FOR DETOX USE ONLY) PO ONE (10:00)
--- NOTE | 2018-01-06 10:08 | PN ---
[facility] Progress Note (SOAP) Subjective: interrupted sleep agitation sweats body aches Objective: 01/06/18 10:07 Vital Signs Temperature 98.2 F 01/06/18 09:44 Pulse Rate 90 01/06/18 09:44 Respiratory Rate 16 01/06/18 09:44 Blood Pressure 111/57 L 01/06/18 09:44 O2 Sat by Pulse Oximetry (%) aaox3 ambulating no acute distress Assessment: 01/06/18 10:07 withdrawal sx Plan: continue detox increase fluids
[2018-01-06] MEDS: NICOTINE 14 MG/24 HOURS TOPICAL PATCH TD SCH (10:43)
[2018-01-06] MEDS: PRENATAL VITAMINS W/ FOLIC ACID TABLET (FP) PO SCH (10:43)
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
--- NOTE | 2018-01-06 13:03 | DS ---
[facility] Detox Discharge Summary Admission Date: 01/02/18 - History Present History: Cocaine Dependence, Opioid Dependence - Physical Exam Results Vital Signs: Vital Signs Temperature 98.2 F 01/06/18 09:44 Pulse Rate 90 01/06/18 09:44 Respiratory Rate 16 01/06/18 09:44 Blood Pressure 111/57 L 01/06/18 09:44 O2 Sat by Pulse Oximetry (%) - Treatment Hospital Course: Discharged Condition Good - Medication Discharge Medications: Ambulatory Orders Gabapentin [Neurontin -] 600 mg PO TID 03/31/16 - AMA Did Patient Leave Against Medical Advice: Yes (pt states she is going home. pt signed out AMA.)
[2018-01-07] MEDS ORDERED: METHADONE HCL 10 MG TABLET (FOR DETOX USE ONLY) PO ONE (10:00)
[2018-01-08] MEDS ORDERED: METHADONE HCL 5 MG TABLET (FOR DETOX USE ONLY) PO ONE (06:00)
== END 2018-01-06 12:50 | disposition left against medical advice (07) | DRG 770 ==
LOC: YASAS 22:13 → Y6N 23:57
PROC: HZ2ZZZZ Detoxification Services for Substance Abuse Treatment (ICD-10-PCS; principal; 2018-01-02)
DX: F11.23 Opioid dependence with withdrawal (principal); F14.20 Cocaine dependence, uncomplicated; F17.210 Nicotine dependence, cigarettes, uncomplicated; F19.24 Other psychoactive substance dependence with psychoactive substance-induced mood disorder; F31.9 Bipolar disorder, unspecified; F41.9 Anxiety disorder, unspecified; K59.00 Constipation, unspecified; J45.909 Unspecified asthma, uncomplicated; B18.2 Chronic viral hepatitis C; G40.909 Epilepsy, unspecified, not intractable, without status epilepticus; Z85.3 Personal history of malignant neoplasm of breast; Z90.12 Acquired absence of left breast and nipple; Z88.8 Allergy status to other drugs, medicaments and biological substances
CPT/HCPCS: 36415; 80053; 81003; 85027; 86593; 87389; 93005; 93010

== ENCOUNTER 2019-04-24 15:00 | Inpatient (IN) | payer OTHER ==
[2019-04-24 18:10] VITALS: BMI 23.6
--- NOTE | 2019-04-24 18:43 | HP ---
COWS - Scale Resting Pulse: 1= [place] 81-100 Sweatin= Chills/Flushing Restless Observation: 1= Difficult to Sit Still Pupil Size: 1= Pupils >than Normal Bone or Joint Aches: 2= Severe Diffuse Aches Runny Nose/ Eye Tearin= Runny Nose/Eyes GI Upset > 30mins: 2= Nausea/Diarrhea Tremor Observation: 2= Slight Tremor Visible Yawning Observation: 2= >3x During Session Anxiety or Irritability: 2=Irritable/Anxious Goose Flesh Skin: 0=Smooth Skin COWS Score: 16 CIWA Score Nausea/Vomitin Muscle Tremors: 2 Anxiety: 3 Agitation: 2 Paroxysmal Sweats: 1-Minimal Palms Moist Orientation: 0-Oriented Tacttile Disturbances: 1-Very Mild Itch/Numbness Auditory Disturbances: 0-None Visual Disturbances: 0-None Headache: 2-Mild CIWA-Ar Total Score: 13 - Admission Criteria OASAS Guidelines: Admission for Medically Managed Detox: Requires at least one of the followin. CIWA greater than 12 2. Seizures within the past 24 hours 3. Delirium tremens within the past 24 hours 4. Hallucinations within the past 24 hours 5. Acute intervention needed for co occurring medical disorder 6. Acute intervention needed for co occurring psychiatric disorder 7. Severe withdrawal that cannot be handled at a lower level of care (continued vomiting, continued diarrhea, abnormal vital signs) requiring intravenous medication and/or fluids 8. Admitting History and Physical - Admission Chief Complaint: i wanted to stop using srug and i could not take it anymore History of Present Illness: this 59 years old female with heroin,cocaine and xanax dependence,seeking detox, multiple admissions in the past,last detox 2018,did not recall the facility d/p radical mastectomy left in 2011.s/p chemotherapy and chemotherapy s/p oophorectomy weight loss bipolar disorder,ocd,anxiety and panic idsorder chronic insomnia longest sobriety 17 years live with her son plan for rehab after detox History Source: Patient Limitations to Obtaining History: No Limitations - Past Medical History [employer]PER[employer] SURFACE: Yes: Seizure (last 01/12) Hepatobiliary: Yes: Hepatitis C ...: No - Past Surgical History Past Surgical History: Yes: Mastectomy, Oopherectomy - Smoking History Smoking history: Current some day smoker Have you smoked in the past 12 months: Yes Aproximately how many cigarettes per day: 20 - Alcohol/Substance Use Hx Alcohol Use: No History of Substance Use: reports: Cocaine, Heroin, Tranquilizers - Social History Usual Living Arrangement: Yes: With Child ADL: Support Services Occupation: unemployed History of Recent Travel: No Admission [facility] Chief Complaint: amhere to stop using heroin and drugs Allergies/Adverse Reactions: Allergies Allergy/AdvReac Type Severity Reaction Status Date / Time carbamazepine [From Tegretol] Allergy Severe Difficulty Verified 04/24/19 17:44 Breathing lamotrigine [From Lamictal] Allergy Severe Rash Verified 04/24/19 17:44 phenytoin sodium Allergy Severe Difficulty Verified 04/24/19 17:44 [From Dilantin] Breathing phenytoin sodium extended Allergy Severe Difficulty Verified 04/24/19 17:44 [From Dilantin] Breathing History of Present Illness: this 59 years old female with heroin,cocaine,xanx dependence ,seeking detox, longest sobriety 17 years nicotine dependence seizure last 01/12 iv drug weight loss bipolar disorder,ocd, Exam Limitations: No Limitations - Ebola screening Have you traveled outside of the country in the last 21 days: No Have you had contact with anyone from an Ebola affected area: No Have you been sick,other than usual withdrawal symptoms: No Do you have a fever: No - Review of Systems Constitutional: Chills, Loss of Appetite, Malaise, Night Sweats, Changes in sleep, Weakness EENT: reports: Tearing, Nose Congestion Respiratory: reports: No Symptoms reported Cardiac: reports: No Symptoms Reported GI: reports: Diarrhea, Nausea, Vomiting, Abdominal cramping : reports: No Symptoms Reported Musculoskeletal: reports: Back Pain, Muscle Pain Integumentary: reports: Dryness, Other (s/p mastectomy left) Neuro: reports: Tremors Endocrine: reports: No Symptoms Reported Hematology: reports: No Symptoms Reported Psychiatric: reports: No Sypmtoms Reported, Judgement Intact, Mood/Affect Appropiate, Orientated x3, other (bipolar disorder,ocd,) Patient History - Patient Medical History Hx Anemia: No Hx Asthma: Yes (Alb uterol) Hx Chronic Obstructive Pulmonary Disease (COPD): No Hx Cancer: Yes (LEFT BREAST/ breast removal 05/2011) Hx Cardiac Disorders: No Hx Congestive Heart Failure: No Hx Hypertension: No Hx Hypercholesterolemia: No Hx Pacemaker: No HX Cerebrovascular Accident: No Hx Seizures: Yes (Not on medication) Hx Dementia: No Hx Diabetes: No Hx Gastrointestinal Disorders: No Hx Liver Disease: No Hx Genitourinary Disorders: No Hx Sexually Transmitted Disorders: No Hx Renal Disease (ESRD): No Hx Thyroid Disease: No Hx Human Immunodeficiency Virus (HIV): No (NEGATIVE HX LAST 10/12) Hx Hepatitis C: Yes (Not on medication) Hx Depression: Yes (Not on medication) Hx Suicide Attempt: Yes (Attempt at age 15, denies suicidal ideation at this time) Hx Bipolar Disorder: Yes ( ) Hx Schizophrenia: No Other Medical History: no suicidal,no homicidal - Patient Surgical History Past Surgical History: Yes Hx Neurologic Surgery: No Hx Cataract Extraction: No Hx Cardiac Surgery: No Hx Lung Surgery: No Hx Breast Surgery: Yes (MODIFIED LEFT RADICAL MASTECTOMY IN 07/05 [facility]) Hx Breast Biopsy: No Hx Abdominal Surgery: No Hx Appendectomy: No Hx Cholecystectomy: No Hx Genitourinary Surgery: No Hx Section: Yes (1979, 1984) Hx Orthopedic Surgery: No Other Surgical History: ectopic at age 24 LEFT Anesthesia Reaction: No - PPD History Previous Implant?: Yes Documented Results: Negative w/o proof Implanted On Prior [facility] Admission?: Yes Date: 01/05/18 Results: 0 MM PPD to be Administered?: Yes - Reproductive History Patient is a Female of Child Bearing Age (11 -55 yrs old): No - Smoking Cessation Smoking history: Current some day smoker Have you smoked in the past 12 months: Yes Aproximately how many cigarettes per day: 20 Cigars Per Day: 0 Hx Chewing Tobacco Use: No Initiated information on smoking cessation: Yes 'Breaking Loose' booklet given: 04/24/19 - Substance & Tx. History Hx Alcohol Use: No Hx Substance Use: Yes Substance Use Type: Cocaine, Heroin, Tranquilizers Hx Substance Use Treatment: Yes (2019 did not recall the facility) - Substances abused Heroin Substance route: Injection Frequency: Daily Amount used: 1 bundle Age of first use: 24 Date of last use: 04/24/19 Other Other (specify): Fentanyl Substance route: Injection Frequency: 1-2 times per week Amount used: 2 bags Age of first use: 56 Date of last use: 04/24/19 Crack Substance route: Smoking Frequency: Daily Amount used: 300 $ Age of first use: 55 Date of last use: 04/24/19 Alprazolam (Xanax) Substance route: Oral Frequency: Daily Amount used: 2 mgs Age of first use: 24 Date of last use: 04/22/19 Admission Physical Exam [facility] - Vital Signs Vital Signs: Vital Signs - 24 hr 04/24/19 18:02 Temperature 98.7 F Pulse Rate 86 Respiratory 18 Rate Blood Pressure 103/57 L - Physical General Appearance: Yes: Moderate Distress, Tremorous, Sweating HEENTM: Yes: Normal ENT Inspection, DREW Respiratory: Yes: Lungs Clear, Normal Breath Sounds, No Respiratory Distress Neck: Yes: Within Normal Limits, Supple, Trachea in good position Breast: Yes: Mastectomy, Surgical Scar (left wearing prosthesis) Cardiology: Yes: Within Normal Limits Abdominal: Yes: Within Normal Limits, Normal Bowel Sounds, Non Tender, Flat, Soft, Surgical Scar Genitourinary: Yes: Within Normal Limits Back: Yes: Muscle Spasm Musculoskeletal: Yes: Back pain, Muscle Pain Extremities: Yes: Tremors Neurological: Yes: wellness trainer II-XII NML intact, Fully Oriented, Alert, Motor Strength 5/5, Normal Response Integumentary: Yes: Dry (ceellulitis of right elbow), Track Ramirez Lymphatic: Yes: Within Normal Limits - Diagnostic (1) Cocaine dependence Current Visit: No Status: Acute (2) Opioid dependence with withdrawal Current Visit: No Status: Acute (3) Asthma Current Visit: No Status: Chronic Qualifiers: Asthma severity: mild intermittent Asthma complication type: uncomplicated (4) Bipolar disorder Current Visit: No Status: Chronic Comment: As per records. No evidence of symptoms at time of this examination. (5) History of mastectomy Current Visit: No Status: Chronic Qualifiers: Laterality: left Qualified Code(s): Z90.12 - Acquired absence of left breast and nipple (6) Nicotine dependence Current Visit: No Status: Chronic Qualifiers: Nicotine product type: cigarettes Substance use status: uncomplicated Qualified Code(s): F17.210 - Nicotine dependence, cigarettes, uncomplicated (7) Seizures Current Visit: No Status: Chronic Qualifiers: Convulsion type: unspecified Qualified Code(s): R56.9 - Unspecified convulsions (8) COPD (chronic obstructive pulmonary disease) Current Visit: Yes Status: Acute (9) Asthma Current Visit: Yes Status: Acute (10) Cellulitis Current Visit: Yes Status: Acute (11) Weight loss Current Visit: No Status: Acute (12) IVDU (intravenous drug user) Current Visit: Yes Status: Acute Cleared for Admission S - Detox or Rehab [facility] Level of Care: Medically Managed Detox Regimen/Protocol: Methadone/Valium Breathalyzer - Breathalyzer Breathalyzer: 0 Urine Drug Screen - Test Device Lot number: [id number] Expiration date: 01/23/21 - Control Is test valid?: Yes - Results Drug screen NEGATIVE: No Urine drug screen results: PAWAN-Cocaine, FEN-Fentanyl, MOP-Opiates, BZO- Benzodiazepines Inpatient Rehab Admission - Rehab Decision to Admit Inpatient rehab admission?: No
[2019-04-24] MEDS ORDERED: ACETAMINOPHEN 325 MG TABLET (FP) PO PRN (18:58)
[2019-04-24] MEDS ORDERED: MAG HYDROX/AL HYDROX/SIMETH 30 ML UNIT-DOSE CUP PO PRN (18:58)
[2019-04-24] MEDS ORDERED: BISMUTH SUBSALICYLATE 524 MG/30 ML UD PO PRN (18:58)
[2019-04-24] MEDS ORDERED: METHADONE HCL 10 MG TABLET (FOR DETOX USE ONLY) PO ONE (18:58)
[2019-04-24] MEDS ORDERED: MAGNESIUM HYDROX 2400MG/30ML ORAL SUSPENSION 30 ML CUP PO PRN (18:58)
[2019-04-24] MEDS ORDERED: hydrOXYzine PAMOATE 25 MG CAPSULE (FP) PO PRN (18:58)
[2019-04-24] MEDS ORDERED: IBUPROFEN 400 MG TABLET (FP) PO PRN (18:58)
[2019-04-24] MEDS ORDERED: NICOTINE POLACRILEX 2 MG GUM BUC PRN (18:58)
[2019-04-24] MEDS ORDERED: MAGNESIUM CITRATE 300 ML BOTTLE PO PRN (18:58)
[2019-04-24] MEDS ORDERED: cloNIDine HCL 0.1 MG TABLET PO PRN (18:58)
[2019-04-24] MEDS ORDERED: MENTHOL/PHENOL 1 EACH UD MM PRN (18:58)
[2019-04-24] MEDS: NICOTINE 21 MG/24 HOURS TOPICAL PATCH TD SCH (19:55)
[2019-04-24] MEDS: ALBUTEROL SO4 HFA INHALER IH PRN (20:00)
[2019-04-24] MEDS: diazePAM 5 MG TABLET PO SCH (22:58)
[2019-04-24] MEDS: MONTELUKAST NA 10 MG TABLET PO SCH (22:58)
[2019-04-24] MEDS: CEPHALEXIN MONOHYDRATE 500 MG CAPSULE (UD) PO SCH (22:58)
[2019-04-24] MEDS: BUDESONIDE/FORMETEROL FUMARATE 80/4.5 mcg INHALER IH SCH (22:59)
[2019-04-24] MEDS: THIAMINE HCL 100 MG TABLET (FP) PO SCH (22:59)
[2019-04-24] MEDS: MELATONIN 5 MG TABLETS PO PRN (22:59)
[2019-04-25] MEDS: diazePAM 5 MG TABLET PO SCH ×3 (06:27→22:27)
[2019-04-25] MEDS: CEPHALEXIN MONOHYDRATE 500 MG CAPSULE (UD) PO SCH ×3 (06:27→22:27)
[2019-04-25 09:20] LABS: HEMATOCRIT 36.7 % (32.4-45.2); MCH 24.9 pg (25.7-33.7); MCHC 32.6 g/dl (32.0-36.0); MEAN CELL VOLUME 76.2 fl (80-96); MEAN PLT VOLUME 7.7 fl (7.5-11.1); PLATELET COUNT 232 K/MM3 (134-434); RBC 4.82 M/mm3 (3.60-5.2); RDW 15.1 % (11.6-15.6); WHITE BLOOD COUNT 5.7 K/mm3 (4.0-10.0)
[2019-04-25 09:30] LABS: ALBUMIN 2.9 g/dl (3.4-5.0); BLOOD UREA NITROGEN 5.8 mg/dL (7-18); CALCIUM 8.6 mg/dL (8.5-10.1); CREATININE 0.7 mg/dL (0.55-1.3); TOT PROT 7.2 g/dl (6.4-8.2)
[2019-04-25] MEDS ORDERED: METHADONE (DETOX) 20 MG, METHADONE (DETOX) 5 MG PO ONE (10:00)
[2019-04-25] MEDS ORDERED: METHADONE HCL 5 MG TABLET (FOR DETOX USE ONLY) ONE (10:28)
[2019-04-25] MEDS ORDERED: METHADONE HCL 10 MG TABLET (FOR DETOX USE ONLY) ONE (10:29)
[2019-04-25] MEDS: NICOTINE 21 MG/24 HOURS TOPICAL PATCH TD SCH (10:30)
[2019-04-25] MEDS: PRENATAL VITAMINS W/ FOLIC ACID TABLET (FP) PO SCH (10:30)
[2019-04-25] MEDS: LACOSAMIDE 50 MG TABLET PO SCH (10:30)
[2019-04-25] MEDS: BUDESONIDE/FORMETEROL FUMARATE 80/4.5 mcg INHALER IH SCH ×2 (10:32→22:44)
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
--- NOTE | 2019-04-25 16:15 | PN ---
[facility] CIWA - CIWA Score Nausea/Vomitin-Mild Nausea/No Vomiting Muscle Tremors: 2 Anxiety: 3 Agitation: 3 Paroxysmal Sweats: 3 Orientation: 0-Oriented Tacttile Disturbances: 0-None Auditory Disturbances: 0-None Visual Disturbances: 0-None Headache: 0-None Present CIWA-Ar Total Score: 12 BHS COWS - Scale Resting Pulse: 0= [place] 80 or Below Sweatin= Chills/Flushing Restless Observation: 1= Difficult to Sit Still Pupil Size: 0= Normal to Room Light Bone or Joint Aches: 2= Severe Diffuse Aches Runny Nose/ Eye Tearin= Runny Nose/Eyes GI Upset > 30mins: 2= Nausea/Diarrhea Tremor Observation of Outstretched Hands: 2= Slight Tremor Visible Yawning Observation: 0= None Anxiety or Irritability: 2=Irritable/Anxious Goose Flesh Skin: 0=Smooth Skin COWS Score: 12 S Progress Note (SOAP) Subjective: Chills, aching, mild abdominal cramps, back pain Objective: 04/25/19 16:07 Last Vital Signs Temp Pulse Resp BP Pulse Ox 98.1 F 73 18 113/60 04/25/19 08:29 04/25/19 08:29 04/25/19 13:00 04/25/19 08:29 Laboratory Tests 04/25/19 04/25/19 04/25/19 07:30 07:30 07:30 WBC 5.7 RBC 4.82 Hgb 12.0 Hct 36.7 MCV 76.2 L MCH 24.9 L MCHC 32.6 RDW 15.1 Plt Count 232 MPV 7.7 Sodium 139 Potassium 4.0 Chloride 107 Carbon Dioxide 27 Anion Gap 6 L BUN 5.8 L Creatinine 0.7 Est GFR (CKD-EPI)AfAm 111.47 Est GFR (CKD-EPI)NonAf 96.18 Random Glucose 143 H Calcium 8.6 Total Bilirubin 1.0 AST 31 ALT 40 Alkaline Phosphatase 120 H Total Protein 7.2 Albumin 2.9 L RPR Titer Nonreactive Labs reviewed: albumin 2.9 (low), serum glucose 143 (high) Assessment: 04/25/19 16:09 Withdrawal sxs Noted with hyperglycemia and hypoalbuminemia Plan: Continue detox Encouraged PO water intake Hyperglycemia: denies DM, repeat fasting glucose, check A1c Hypoalbuminemia: encourage diet, d/c ensure due to hyperglycemia, start glucerna 1 cup PO TID
[2019-04-25] MEDS: ALBUTEROL SO4 HFA INHALER IH PRN (16:58)
[2019-04-25] MEDS: diazePAM 5 MG TABLET PO PRN (20:15)
[2019-04-25] MEDS: METHOCARBAMOL 500 MG TABLET PO PRN (20:16)
[2019-04-25] MEDS: THIAMINE HCL 100 MG TABLET (FP) PO SCH (22:27)
[2019-04-25] MEDS: MONTELUKAST NA 10 MG TABLET PO SCH (22:27)
[2019-04-25] MEDS: MELATONIN 5 MG TABLETS PO PRN (22:28)
[2019-04-26] MEDS: diazePAM 5 MG TABLET PO PRN ×2 (03:10→19:59)
[2019-04-26] MEDS: diazePAM 5 MG TABLET PO SCH ×2 (06:08→17:58)
[2019-04-26] MEDS: CEPHALEXIN MONOHYDRATE 500 MG CAPSULE (UD) PO SCH ×3 (06:08→22:23)
[2019-04-26] MEDS: ACETAMINOPHEN 325 MG TABLET (FP) PO PRN (09:34)
--- NOTE | 2019-04-26 09:58 | PN ---
[facility] CIWA - CIWA Score Nausea/Vomitin-No Nausea/No Vomiting Muscle Tremors: 3 Anxiety: 3 Agitation: 2 Paroxysmal Sweats: 2 Orientation: 0-Oriented Tacttile Disturbances: 0-None Auditory Disturbances: 0-None Visual Disturbances: 0-None Headache: 3-Moderate CIWA-Ar Total Score: 13 BHS COWS - Scale Resting Pulse: 1= [place] 81-100 Sweatin= Chills/Flushing Restless Observation: 1= Difficult to Sit Still Pupil Size: 0= Normal to Room Light Bone or Joint Aches: 2= Severe Diffuse Aches Runny Nose/ Eye Tearin= Nasal Congestion GI Upset > 30mins: 0= None Tremor Observation of Outstretched Hands: 2= Slight Tremor Visible Yawning Observation: 2= >3x During Session Anxiety or Irritability: 2=Irritable/Anxious Goose Flesh Skin: 0=Smooth Skin COWS Score: 12 BHS Progress Note (SOAP) Subjective: sweats shakes nasal congestions body aches headache irritable insomnia Objective: 04/26/19 09:58 Vital Signs Temperature 98.2 F 04/26/19 06:05 Pulse Rate 83 04/26/19 06:05 Respiratory Rate 16 04/26/19 06:05 Blood Pressure 124/71 04/26/19 06:05 O2 Sat by Pulse Oximetry (%) Laboratory Tests 04/25/19 04/25/19 04/25/19 07:30 07:30 07:30 WBC 5.7 RBC 4.82 Hgb 12.0 Hct 36.7 MCV 76.2 L MCH 24.9 L MCHC 32.6 RDW 15.1 Plt Count 232 MPV 7.7 Sodium 139 Potassium 4.0 Chloride 107 Carbon Dioxide 27 Anion Gap 6 L BUN 5.8 L Creatinine 0.7 Est GFR (CKD-EPI)AfAm 111.47 Est GFR (CKD-EPI)NonAf 96.18 Random Glucose 143 H Calcium 8.6 Total Bilirubin 1.0 AST 31 ALT 40 Alkaline Phosphatase 120 H Total Protein 7.2 Albumin 2.9 L RPR Titer Nonreactive aaox3 ambulating no acute distress Assessment: 04/26/19 09:58 withdrawals Plan: continue detox motrin/tylenol prn increase fluids
[2019-04-26] MEDS ORDERED: METHADONE HCL 10 MG TABLET (FOR DETOX USE ONLY) PO ONE (10:00)
[2019-04-26] MEDS: NICOTINE 21 MG/24 HOURS TOPICAL PATCH TD SCH (10:06)
[2019-04-26] MEDS: PRENATAL VITAMINS W/ FOLIC ACID TABLET (FP) PO SCH (10:06)
[2019-04-26] MEDS: LACOSAMIDE 50 MG TABLET PO SCH (10:06)
[2019-04-26] MEDS: BUDESONIDE/FORMETEROL FUMARATE 80/4.5 mcg INHALER IH SCH ×2 (10:09→22:30)
[2019-04-26] MEDS: MONTELUKAST NA 10 MG TABLET PO SCH (22:22)
[2019-04-26] MEDS: THIAMINE HCL 100 MG TABLET (FP) PO SCH (22:22)
[2019-04-26] MEDS: MELATONIN 5 MG TABLETS PO PRN (22:23)
[2019-04-27] MEDS ORDERED: diazePAM 5 MG TABLET PO ONE (06:00)
[2019-04-27] MEDS: CEPHALEXIN MONOHYDRATE 500 MG CAPSULE (UD) PO SCH ×3 (06:14→22:23)
[2019-04-27] MEDS: ACETAMINOPHEN 325 MG TABLET (FP) PO PRN (06:16)
[2019-04-27] MEDS: ALBUTEROL SO4 HFA INHALER IH PRN (06:59)
[2019-04-27] MEDS: METHOCARBAMOL 500 MG TABLET PO PRN ×3 (07:35→23:12)
[2019-04-27] MEDS ORDERED: METHADONE HCL 5 MG TABLET (FOR DETOX USE ONLY) ONE (09:09)
[2019-04-27] MEDS ORDERED: METHADONE HCL 10 MG TABLET (FOR DETOX USE ONLY) ONE (09:10)
[2019-04-27] MEDS ORDERED: METHADONE (DETOX) 10 MG, METHADONE (DETOX) 5 MG PO ONE (10:00)
[2019-04-27] MEDS: NICOTINE 21 MG/24 HOURS TOPICAL PATCH TD SCH (11:08)
[2019-04-27] MEDS: PRENATAL VITAMINS W/ FOLIC ACID TABLET (FP) PO SCH (11:08)
[2019-04-27] MEDS: LACOSAMIDE 50 MG TABLET PO SCH (11:08)
[2019-04-27] MEDS: BUDESONIDE/FORMETEROL FUMARATE 80/4.5 mcg INHALER IH SCH ×2 (11:11→22:38)
--- NOTE | 2019-04-27 13:41 | PN ---
[facility] CIWA - CIWA Score Nausea/Vomitin-No Nausea/No Vomiting Muscle Tremors: 3 Anxiety: 2 Agitation: 2 Paroxysmal Sweats: 2 Orientation: 0-Oriented Tacttile Disturbances: 0-None Auditory Disturbances: 0-None Visual Disturbances: 0-None Headache: 0-None Present CIWA-Ar Total Score: 9 BHS COWS - Scale Resting Pulse: 2= [place] 101-120 Sweatin= Chills/Flushing Restless Observation: 1= Difficult to Sit Still Pupil Size: 0= Normal to Room Light Bone or Joint Aches: 1= Mild Discomfort Runny Nose/ Eye Tearin= None GI Upset > 30mins: 0= None Tremor Observation of Outstretched Hands: 1= Tremor [place], Not Seen Yawning Observation: 1= 1-2x During Session Anxiety or Irritability: 2=Irritable/Anxious Goose Flesh Skin: 0=Smooth Skin COWS Score: 9 BHS Progress Note (SOAP) Subjective: sweats chills body aches irritable I am not a diabetic; I want ensure not glucerna Objective: 04/27/19 13:39 Vital Signs Temperature 98.2 F 04/27/19 07:27 Pulse Rate 80 04/27/19 07:27 Respiratory Rate 18 04/27/19 07:27 Blood Pressure 97/56 L 04/27/19 07:27 O2 Sat by Pulse Oximetry (%) Laboratory Tests 04/24/19 04/25/19 04/25/19 18:16 07:30 07:30 WBC 5.7 RBC 4.82 Hgb 12.0 Hct 36.7 MCV 76.2 L MCH 24.9 L MCHC 32.6 RDW 15.1 Plt Count 232 MPV 7.7 Sodium 139 Potassium 4.0 Chloride 107 Carbon Dioxide 27 Anion Gap 6 L BUN 5.8 L Creatinine 0.7 Est GFR (CKD-EPI)AfAm 111.47 Est GFR (CKD-EPI)NonAf 96.18 Random Glucose 143 H Fasting Glucose Hemoglobin A1c % Calcium 8.6 Total Bilirubin 1.0 AST 31 ALT 40 Alkaline Phosphatase 120 H Total Protein 7.2 Albumin 2.9 L POC Urine HCG, Qual Negative RPR Titer 04/25/19 04/26/19 04/26/19 07:30 08:00 08:00 WBC RBC Hgb Hct MCV MCH MCHC RDW Plt Count MPV Sodium Potassium Chloride Carbon Dioxide Anion Gap BUN Creatinine Est GFR (CKD-EPI)AfAm Est GFR (CKD-EPI)NonAf Random Glucose Fasting Glucose 94 Hemoglobin A1c % 6.0 Calcium Total Bilirubin AST ALT Alkaline Phosphatase Total Protein Albumin POC Urine HCG, Qual RPR Titer Nonreactive labs noted aaox3 ambulating no acute distress Assessment: 04/27/19 13:40 withdrawals Plan: continue detox ensure BID ordered A1C is 6.0; pt is not a diabetic
[2019-04-27] MEDS: LIDOCAINE 5% TOPICAL PATCH TP SCH (16:02)
[2019-04-27] MEDS: diazePAM 5 MG TABLET PO PRN (17:02)
[2019-04-27] MEDS ORDERED: LIDOCAINE PATCH REMOVAL MC SCH (22:00)
[2019-04-27] MEDS: MONTELUKAST NA 10 MG TABLET PO SCH (22:23)
[2019-04-27] MEDS: THIAMINE HCL 100 MG TABLET (FP) PO SCH (22:23)
[2019-04-27 23:49] LABS: EPI CELLS 10.3 /HPF (0-5/HPF); HYALINE CASTS 15 /lpf (0-8); PH,URINE 6.5 (5.0-8.0); URINE APPEARANCE CLOUDY; URINE BACTERIA 186.3 /hpf (NEGATIVE); URINE BILIRUBIN NEGATIVE (NEGATIVE); URINE COLOR YELLOW; URINE GLUCOSE (UA) NEGATIVE (NEGATIVE); URINE KETONE NEGATIVE (NEGATIVE); URINE LEUK ESTERASE 3+ (NEGATIVE); URINE NITRITE NEGATIVE (NEGATIVE); URINE PROTEIN NEGATIVE (NEGATIVE); URINE RBC 3 /hpf (0-4); URINE WBC 103 /hpf (0-5)
[2019-04-28 02:04] LABS: URINE CRYSTALS 25 CA OXALATE /hpf
[2019-04-28] MEDS: MELATONIN 5 MG TABLETS PO PRN (02:33)
[2019-04-28] MEDS: ACETAMINOPHEN 325 MG TABLET (FP) PO PRN (03:09)
[2019-04-28] MEDS ORDERED: IBUPROFEN 600 MG TABLET (FP) PO ONE (03:58)
--- NOTE | 2019-04-28 04:00 | PN ---
[facility] Progress Note Note: Patient complained of back pain Vital Signs Temperature 98.1 F 04/28/19 03:54 Pulse Rate 93 H 04/28/19 03:54 Respiratory Rate 20 04/28/19 03:54 Blood Pressure 130/89 04/28/19 03:54 O2 Sat by Pulse Oximetry (%) Action: Motrin 600mg tablet oral ordered
[2019-04-28] MEDS: CEPHALEXIN MONOHYDRATE 500 MG CAPSULE (UD) PO SCH (06:06)
[2019-04-28] MEDS ORDERED: METHOCARBAMOL 750 MG TAB PO PRN (08:32)
[2019-04-28] MEDS ORDERED: IBUPROFEN 400 MG TABLET (FP) PO PRN (08:32)
--- NOTE | 2019-04-28 09:00 | DS ---
[facility] Detox Discharge Summary Admission Date: 04/24/19 Discharge Date: 04/28/19 - History Present History: Cocaine Dependence, Opioid Dependence - Physical Exam Results Vital Signs: Vital Signs Temperature 98.2 F 04/28/19 05:52 Pulse Rate 86 04/28/19 05:52 Respiratory Rate 20 04/28/19 05:52 Blood Pressure 101/44 L 04/28/19 05:52 O2 Sat by Pulse Oximetry (%) Pertinent Admission Physical Exam Findings: Vital Signs Temperature 97.9 04/28/19 10:00 Pulse Rate 91 04/28/19 10:00 Respiratory Rate 17 04/28/19 10:00 Blood Pressure 149/87 04/28/19 10:00 O2 Sat by Pulse Oximetry (%) Laboratory Tests 04/24/19 04/25/19 04/25/19 18:16 07:30 07:30 WBC 5.7 RBC 4.82 Hgb 12.0 Hct 36.7 MCV 76.2 L MCH 24.9 L MCHC 32.6 RDW 15.1 Plt Count 232 MPV 7.7 Sodium 139 Potassium 4.0 Chloride 107 Carbon Dioxide 27 Anion Gap 6 L BUN 5.8 L Creatinine 0.7 Est GFR (CKD-EPI)AfAm 111.47 Est GFR (CKD-EPI)NonAf 96.18 Random Glucose 143 H Fasting Glucose Hemoglobin A1c % Calcium 8.6 Total Bilirubin 1.0 AST 31 ALT 40 Alkaline Phosphatase 120 H Total Protein 7.2 Albumin 2.9 L Urine Color Urine Appearance Urine pH Ur Specific [place] Urine Protein Urine Glucose (UA) Urine Ketones Urine Blood Urine Nitrite Urine Bilirubin Urine Urobilinogen Ur Leukocyte Esterase Urine WBC (Auto) Urine RBC (Auto) Urine Casts (Auto) U Pathogenic Cast Auto U Epithel Cells (Auto) U Sm Round Cell (Auto) Urine Crystals (Auto) Urine Bacteria (Auto) Urine Yeast (Auto) POC Urine HCG, Qual Negative RPR Titer 04/25/19 04/26/19 04/26/19 07:30 08:00 08:00 WBC RBC Hgb Hct MCV MCH MCHC RDW Plt Count MPV Sodium Potassium Chloride Carbon Dioxide Anion Gap BUN Creatinine Est GFR (CKD-EPI)AfAm Est GFR (CKD-EPI)NonAf Random Glucose Fasting Glucose 94 Hemoglobin A1c % 6.0 Calcium Total Bilirubin AST ALT Alkaline Phosphatase Total Protein Albumin Urine Color Urine Appearance Urine pH Ur Specific [place] Urine Protein Urine Glucose (UA) Urine Ketones Urine Blood Urine Nitrite Urine Bilirubin Urine Urobilinogen Ur Leukocyte Esterase Urine WBC (Auto) Urine RBC (Auto) Urine Casts (Auto) U Pathogenic Cast Auto U Epithel Cells (Auto) U Sm Round Cell (Auto) Urine Crystals (Auto) Urine Bacteria (Auto) Urine Yeast (Auto) POC Urine HCG, Qual RPR Titer Nonreactive 04/27/19 20:00 WBC RBC Hgb Hct MCV MCH MCHC RDW Plt Count MPV Sodium Potassium Chloride Carbon Dioxide Anion Gap BUN Creatinine Est GFR (CKD-EPI)AfAm Est GFR (CKD-EPI)NonAf Random Glucose Fasting Glucose Hemoglobin A1c % Calcium Total Bilirubin AST ALT Alkaline Phosphatase Total Protein Albumin Urine Color Yellow Urine Appearance Cloudy Urine pH 6.5 Ur Specific [place] 1.024 Urine Protein Negative Urine Glucose (UA) Negative Urine Ketones Negative Urine Blood Negative Urine Nitrite Negative Urine Bilirubin Negative Urine Urobilinogen 1.0 Ur Leukocyte Esterase 3+ H Urine WBC (Auto) 103 Urine RBC (Auto) 3 Urine Casts (Auto) 15 U Pathogenic Cast Auto None U Epithel Cells (Auto) 10.3 U Sm Round Cell (Auto) None Urine Crystals (Auto) 25 ca oxalate Urine Bacteria (Auto) 186.3 Urine Yeast (Auto) None POC Urine HCG, Qual RPR Titer - Treatment Hospital Course: Detox Protocol Followed, Detoxed Safely, Responded well, Discharged Condition Good, Rehab Referral Accepted - Medication Discharge Medications: Ambulatory Orders Albuterol Sulfate Inhaler - [Ventolin HFA Inhaler -] 2 inhaler PO TID PRN Aripiprazole [Abilify] 5 mg PO DAILY 04/24/19 Azelastine HCl 1 drop OU BID PRN 04/24/19 Gabapentin 300 mg PO BID 04/24/19 Hydroxyzine HCl 1 tablet PO TID PRN 04/24/19 Lacosamide [Vimpat -] 100 mg PO DAILY 04/24/19 Montelukast Sodium [Singulair] 10 mg PO HS 04/24/19 SYMBICORT 80/4.5mcg - 1 puff BID 04/24/19 Sertraline HCl 100 mg PO DAILY 04/24/19 Cephalexin Monohydrate [Keflex -] 500 mg PO TID #4 capsule 04/28/19 - Diagnosis (1) Asthma Current Visit: Yes Status: Chronic Qualifiers: Asthma severity: mild Asthma persistence: unspecified Asthma complication type: unspecified Qualified Code(s): J45.909 - Unspecified asthma , uncomplicated (2) COPD (chronic obstructive pulmonary disease) Current Visit: Yes Status: Acute (3) Cellulitis Current Visit: Yes Status: Acute Qualifiers: Site of cellulitis: extremity Site of cellulitis of extremity: upper extremity Laterality: right Qualified Code(s): L03.113 - Cellulitis of right upper limb (4) Cocaine dependence Current Visit: Yes Status: Chronic Qualifiers: Substance use status: uncomplicated Qualified Code(s): F14.20 - Cocaine dependence, uncomplicated (5) IVDU (intravenous drug user) Current Visit: Yes Status: Chronic (6) Opioid dependence with withdrawal Current Visit: Yes Status: Chronic (7) Substance induced mood disorder Current Visit: Yes Status: Acute (8) Mood disorder Current Visit: Yes Status: Chronic (9) OCD (obsessive compulsive disorder) Current Visit: No Status: Acute (10) Anxiety Current Visit: No Status: Chronic (11) Bipolar disorder Current Visit: No Status: Chronic (12) Depression Current Visit: No Status: Chronic Qualifiers: Depression Type: unspecified Qualified Code(s): F32.9 - Major depressive disorder, single episode, unspecified (13) Hep C w/o coma, chronic Current Visit: No Status: Chronic (14) History of mastectomy Current Visit: No Status: Chronic Qualifiers: Laterality: left Qualified Code(s): Z90.12 - Acquired absence of left breast and nipple (15) Nicotine dependence Current Visit: Yes Status: Chronic Qualifiers: Nicotine product type: cigarettes Substance use status: uncomplicated Qualified Code(s): F17.210 - Nicotine dependence, cigarettes, uncomplicated (16) Seizures Current Visit: No Status: Chronic Qualifiers: Convulsion type: unspecified Qualified Code(s): R56.9 - Unspecified convulsions - AMA Did Patient Leave Against Medical Advice: No
[2019-04-28] MEDS: LACOSAMIDE 50 MG TABLET PO SCH (09:24)
[2019-04-28] MEDS: LIDOCAINE 5% TOPICAL PATCH TP SCH (09:25)
[2019-04-28] MEDS: PRENATAL VITAMINS W/ FOLIC ACID TABLET (FP) PO SCH (09:25)
[2019-04-28 09:39] VITALS: BP 149/87; PULSE 91; TEMP 97.9
[2019-04-28] MEDS ORDERED: metroNIDAZOLE 250 MG TABLET PO SCH (10:00)
[2019-04-28] MEDS ORDERED: METHADONE HCL 10 MG TABLET (FOR DETOX USE ONLY) PO ONE (10:00)
[2019-04-29] MEDS ORDERED: METHADONE HCL 5 MG TABLET (FOR DETOX USE ONLY) PO ONE (06:00)
== END 2019-04-28 09:35 | disposition home or self-care (01) | DRG 773 ==
LOC: YASAS 15:00 → Y6N 19:06
PROVIDERS: ADMIT Allergy & Immunology; ATTEND Allergy & Immunology
PROC: HZ2ZZZZ Detoxification Services for Substance Abuse Treatment (ICD-10-PCS; principal; 2019-04-24)
DX: F11.23 Opioid dependence with withdrawal (principal); F14.20 Cocaine dependence, uncomplicated; F17.210 Nicotine dependence, cigarettes, uncomplicated; F31.9 Bipolar disorder, unspecified; F41.8 Other specified anxiety disorders; F39 Unspecified mood [affective] disorder; F19.24 Other psychoactive substance dependence with psychoactive substance-induced mood disorder; F42.9 Obsessive-compulsive disorder, unspecified; L03.113 Cellulitis of right upper limb; B18.2 Chronic viral hepatitis C; G40.909 Epilepsy, unspecified, not intractable, without status epilepticus; J44.9 Chronic obstructive pulmonary disease, unspecified; J45.998 Other asthma; R73.9 Hyperglycemia, unspecified; E88.09 Other disorders of plasma-protein metabolism, not elsewhere classified; Z85.3 Personal history of malignant neoplasm of breast; Z90.12 Acquired absence of left breast and nipple; Z88.8 Allergy status to other drugs, medicaments and biological substances
CPT/HCPCS: 36415; 80053; 81003; 81025; 82947; 83036; 85027; 86593; J0735